=== PATIENT | male | born 1985 | race Caucasian/White ===

== ENCOUNTER 2024-04-30 02:58 | Emergency (ER) | payer OTHER, SELFPAY ==
[2024-04-30 03:00] VITALS: BP 154/106; PULSE 71; RESP 18; TEMP 36.4; O2SAT 97
--- NOTE | 2024-04-30 03:15 | ED.EAR ---
HPI - Ear Problem General Chief complaint: Ear Stated complaint: unspecified Time Seen by Provider: 04/30/24 03:14 Source: patient Mode of arrival: ambulatory Limitations: no limitations History of Present Illness HPI Narrative: this is a 38-year-old male presents with some sinus congestion with a postnasal drip right ear pressure with with some right frontal maxillary sinus tenderness with tender submandibular nodes mainly on the right with no fever chills no shortness of breath. MD Complaint: ear pain Location: right ear Duration: constant Severity: mild Relieving factors: NDAIDs Related Data Allergies Allergy/AdvReac Type Severity Reaction Status Date / Time No Known Allergies Allergy Unverified 10/17/14 19:18 Review of Systems Review of Systems: All systems reviewed & are unremarkable except as noted in HPI and below PMFSH Past Medical History Medical History Patient denies medical problems Exam Const: General: healthy appearing Nutritional Appearance: well nourished Orientation/consciousness: patient oriented x3 Limitations: no limitations HENMT: Head: normal to inspection Other: frontal and maxillary sinus tenderness with palpation Eyes: Conjunctivae: conjunctivae normal Neck: Neck: normal visual inspection and lymphadenopathy Chest: Chest palpation & inspection: normal inspection of the chest Resp: Effort & Inspection: normal respiratory effort Auscultation: clear to auscultation bilaterally GI: GI Palp: Yes Soft to palpation Course Course Emergency Course: submandibular node tenderness her right side than left with frontal sinus tenderness and air pressure administered a dose of Zithromax 500mg p.o.. Vital Signs Vital signs: Vital Signs Temperature 36.4 C L 04/30/24 03:00 Pulse Rate 71 04/30/24 03:00 Respiratory Rate 18 04/30/24 03:00 Blood Pressure 154/106 H 04/30/24 03:00 Pulse Oximetry 97 04/30/24 03:00 Oxygen Delivery Room Air 04/30/24 03:00 Temperature 36.4 C L 04/30/24 03:00 Pulse Rate 71 04/30/24 03:00 Respiratory Rate 18 04/30/24 03:00 Blood Pressure 154/106 H 04/30/24 03:00 Pulse Oximetry 97 04/30/24 03:00 Oxygen Delivery Room Air 04/30/24 03:00 Medical Decision Making Vital Signs Vital Signs: Vital Signs Temperature 36.4 C L 04/30/24 03:00 Pulse Rate 71 04/30/24 03:00 Respiratory Rate 18 04/30/24 03:00 Blood Pressure 154/106 H 04/30/24 03:00 Pulse Oximetry 97 04/30/24 03:00 Oxygen Delivery Room Air 04/30/24 03:00 Temperature 36.4 C L 04/30/24 03:00 Pulse Rate 71 04/30/24 03:00 Respiratory Rate 18 04/30/24 03:00 Blood Pressure 154/106 H 04/30/24 03:00 Pulse Oximetry 97 04/30/24 03:00 Oxygen Delivery Room Air 04/30/24 03:00 Critical Care Time Critical Care Time Critical Care Time: No Discharge Plan Discharge Clinical Impression: Sinusitis Qualifiers: Sinusitis location: maxillary Chronicity: acute Recurrence: non-recurrent Qualified Code(s): J01.00 - Acute maxillary sinusitis, unspecified Patient Disposition: Home, Self-Care Condition: Stable Instructions: Antibiotic Form, Sinusitis (ED) Additional Instructions: take medication as prescribed and keep follow-up appointment with your primary. Patient Language: Slovenian Prescriptions: New azithromycin [Zithromax Z-Urban] 250 mg tablet See Rx Instructions .ROUTE .COMPLEX Qty: 6 0RF Rx Instructions: For 250 mg dose pack: take 500 mg today (day 1), then 250 mg for 4 days (days 2-5) Follow-up/Referrals: [facility] [Primary Care Provider] - Time of Disposition: 03:19
[2024-04-30] MEDS: AZITHROMYCIN 250 MG TABLET 500 MG PO (03:20)
--- OUTSIDE RECORDS SUMMARY | 2024-05-07 02:45 | XMS_ITS | Patient Health Summary ---
Author Organization [facility] Address [address] [place] [address] Care Team Providers Care Customer Services Coordinator Name Role Phone Unavailable Primary Care Provider Unavailabl e Note from [facility],non-owned Affiliates and Associated Physician Practices is amultiple site organization consisting of ambulatory clinics and hospital sitesin [place], [place], [place] and [place]. This disclosure is being madepursuant to the Care Everywhere program and may not contain all information available regarding this patient. Last updated 18.[facility] Allergies No known active allergies Medications * Be aware that medications may not be up to date on this document. Alwaysverify current medications with the patient. * aspirin (ASPIRIN) 81 MG chew tablet Take 81 mg by mouth once daily Social History Tobacco Use Types Packs/Day Years Used Date Smoking Tobacco: Every Day Alcohol Use Standard Drinks/Week Comments Yes 0 (1 standard drink = 0.6 oz pur e alcohol) 2-3 daily Sex and Gender Information Value Date Recorded Sex Assigned at Not on file Gender Identity Not on file Sexual Orientation Not on file Last Filed Vital Signs Vital Sign Reading Time Taken Comments Blood Pressure 128/90 01/27/2015 6:00 PM CDT Pulse 71 01/27/2015 6:00 PM CDT Temperature 36.6 ??C (97.8 ??F) 01/27/2015 6:00 PM CD T Respiratory Rate 18 01/27/2015 6:00 PM CDT Oxygen Saturation 96% 01/27/2015 6:00 PM CDT Inhaled Oxygen Concentration - - Weight 49.4 kg (109 lb) 01/27/2015 12:07 PM CDT Height 180.3 cm (5' 11 ) 01/27/2015 12:07 PM CDT Body Mass Index 15.2 01/27/2015 12:07 PM CDT Procedures * DRUG ABUSE URINE SCREEN 10(Performed 01/27/2015) * URINALYSIS REFLEX MICROSCOPIC REFLEX CULTURE(Performed 01/27/2015) * TSH(Performed 01/27/2015) * ACETAMINOPHEN LEVEL(Performed 01/27/2015) * SALICYLATE LEVEL BLOOD(Performed 01/27/2015) * ALCOHOL ETHYL BLOOD(Performed 01/27/2015) * COMPREHENSIVE METABOLIC PANEL(Performed 01/27/2015) * CBC W AUTO DIFFERENTIAL(Performed 01/27/2015) Results * DRUG ABUSE URINE SCREEN 10 (01/27/2015 1:12 PM CDT) [facility] Amphetamines Screen Urine Negative Negative 01/27/2015 1:33 PM CDT [facility] Barbiturates Screen Urine Negative Negative 01/27/2015 1:33 PM CDT [facility] Benzodiazepines Screen Urine Negative Negative 01/27/2015 1:33 PM CDT [facility] Cannabinoids Screen Urine Negative Negative 01/27/2015 1:33 PM CDT [facility] Cocaine Screen Urine Negative Negative 01/27/2015 1:33 PM CDT [facility] Methadone Screen Urine Negative Negative 01/27/2015 1:33 PM CDT [facility] Opiate Screen Urine Negative Negative 01/27/2015 1:33 PM CDT [facility] Phencyclidine Screen Urine Negative Negative 01/27/2015 1:33 PM CDT [facility] Tricyclics Screen Urine Negative Negative 01/27/2015 1:33 PM CDT [facility] Methamphetamine Screen Urine Negative Negative 01/27/2015 1:33 PM CDT [facility] Urine URINE / Unknown 01/27/2015 1 :12 PM CDT 01/27/2015 1:17 PM CDT Narrative [facility] - 01/27/2015 1:33 PM CDT This is a presumptive/unconfirmed test for medical treatment purposes only. Clinical consideration and professional judgment should be applied when using presumptive results. If confirmatory testing, such as GC/MS, of any positive results of this test is required, please notify the laboratory within 7 days of collection. This test is intended only for monitoring or management of patients. It is not intended for use in job-related and/or legal-related purposes. The cutoff value for each analyte is: Barbiturates.....200 ng/mL ?? Benzodiazepines......150 ng/mL Cocaine..........150 ng/mL ?? Opiates..............100 ng/mL Phencyclidine.....25 ng/mL ?? Tricyclics...........300 ng/mL Cannabinoid.......50 ng/mL ?? Amphetamines.........500 ng/mL Methadone........200 ng/mL ?? Methamphetamines.....500 ng/mL Lisa Lo MD LAB - URINE CHEMISTR Y ORDERABLES Performing Organization Address City/State/[facility] Co de Phone Number [facility] [address] * URINALYSIS ROUTINE W/REFLEX TO CULTURE (01/27/2015 1:12 PM CDT) Color UA Yellow 01/27/2015 1:22 PM CDT [facility] Clarity UA Clear 01/27/2015 1:22 PM CDT [facility] Glucose UA Negative Negative 01/27/2015 1:22 PM CDT [facility] Bilirubin UA Negative Negative 01/27/2015 1:22 PM CDT [facility] Ketone UA Negative Negative 01/27/2015 1:22 PM CDT [facility] Specific [place] UA <=1.005 1.005 - 1.030 01/27/2015 1:22 PM CDT [facility] pH UA 6.5 5.0 - 8.0 pH 01/27/2015 1:22 PM CDT [facility] Protein UA Negative Negative 01/27/2015 1:22 PM CDT [facility] Urobilinogen UA 0.2 0.2 - 1.0 EU/dL 01/27/2015 1:22 PM CDT [facility] Nitrite UA Negative Negative 01/27/2015 1:22 PM CDT [facility] Blood UA Negative Negative 01/27/2015 1:22 PM CDT [facility] Leukocyte UA Negative Negative 01/27/2015 1:22 PM T [facility] Urine Microscopy Urine microscopy not indicated 01/27/2015 1:22 PM T [facility] Reflex Status Culture not indicated 01/27/2015 1:22 PM CDT [facility] Urine URINE SPECIMEN OBTAINED BY CLEAN CATCH PROCEDURE / Unknown 01/27/2015 1:12 PM CDT 01/27/2015 1:17 PM CDT Lisa Lo MD LAB - URINALYSIS ORD ERABLES Performing Organization Address City/State/[facility] Co de Phone Number [facility] [address] * (ABNORMAL) CBC W AUTO DIFFERENTIAL (01/27/2015 12:08 PM CDT) [facility] WBC 10.0 4.0 - 10.0 x10^9/L 01/27/2015 12:15 PM CDT [facility] RBC 5.55 4.40 - 6.10 x10^12/L 01/27/2015 12:15 PM T [facility] Hemoglobin 18.1(H) 13.7 - 17.5 gm/dL 01/27/2015 12:15 PM T [facility] Hematocrit 50.7 40.1 - 51.0 % 01/27/2015 12:15 PM T [facility] MCV 91.4 78.0 - 100.0 fl 01/27/2015 12:15 PM T [facility] MCH 32.6 25.6 - 34.0 pg 01/27/2015 12:15 PM CDT [facility] MCHC 35.7 32.3 - 36.5 gm/dL 01/27/2015 12:15 PM T [facility] RDW 12.8 11.6 - 14.4 % 01/27/2015 12:15 PM T [facility] MPV 10.1 9.4 - 12.4 fl 01/27/2015 12:15 PM T [facility] Platelet Count 224 163 - 369 x10^9/L 01/27/2015 12:15 PM T [facility] Neutrophils % 73.0 40.0 - 75.0 % 01/27/2015 12:15 PM T [facility] Lymphocytes % 19.2(L) 19.3 - 53.1 % 01/27/2015 12:15 PM T [facility] Monocytes % 6.4 4.7 - 12.5 % 01/27/2015 12:15 PM T [facility] Eosinophils % 0.9 0.7 - 7.0 % 01/27/2015 12:15 PM CDT [facility] Basophils % 0.2 0.1 - 1.2 % 01/27/2015 12:15 PM CDT [facility] Immature Granulocytes 0.3 0 - 0.5 % 01/27/2015 12:15 PM CDT [facility] Neutrophil Absolute 7.26(H) 1.56 - 6.13 x10^9/L 01/27/2015 12:15 PM T [facility] Lymphocytes Absolute 1.91 1.18 - 3.74 x10^9/L 01/27/2015 12:15 PM CDT [facility] Monocytes Absolute 0.64 0.24 - 0.86 x10^9/L 01/27/2015 12:15 PM T [facility] Eosinophils Absolute 0.09 0.04 - 0.54 x10^9/L 01/27/2015 12:15 PM T [facility] Basophils Absolute 0.02 0.01 - 0.08 x10^9/L 01/27/2015 12:15 PM T [facility] Immature Granulocytes Absolute 0.03 0 - 0.03 x10^9/L 01/27/2015 12:15 PM T [facility] nRBC Auto 0 <=0 /100 WBC 01/27/2015 12:15 PM T [facility] nRBC Absolute 0.00 <=0 x10^9/L 01/27/2015 12:15 PM T [facility] Blood BLOOD SPECIMEN / Unknown Lab Venipuncture / Unknown 01/27/2015 12:08 PM CDT 01/27/2015 12:11 PM CDT Lisa Lo MD LAB - HEMATOLOGY ORD ERABLES Performing Organization Address City/State/[facility] Co de Phone Number [facility] [address] * COMPREHENSIVE METABOLIC PANEL (01/27/2015 12:08 PM CDT) [facility] Glucose 94 70 - 125 mg/dL 01/27/2015 12:39 PM CDT [facility] Sodium 137 136 - 145 mmol/L 01/27/2015 12:39 PM CDT [facility] Potassium 4.5 3.4 - 4.5 mmol/L 01/27/2015 12:39 PM T [facility] Chloride 105 98 - 107 mmol/L 01/27/2015 12:39 PM [facility] CO2 23 22 - 29 mmol/L 01/27/2015 12:39 PM [facility] Calcium 9.7 8.4 - 10.2 mg/dL 01/27/2015 12:39 PM [facility] Anion Gap 14 10 - 20 mmol/L 01/27/2015 12:39 PM [facility] BUN 11.6 8.4 - 25.7 mg/dL 01/27/2015 12:39 PM [facility] Creatinine 1.08 0.72 - 1.25 mg/dL 01/27/2015 12:39 PM [facility] eGFR by MDRD >60 >60 mL/min/1.7 3m2 01/27/2015 12:39 PM [facility] eGFR by MDRD >60 >60 mL/min/1.7 3m2 01/27/2015 12:39 PM [facility] Alkaline Phosphatase 99 40 - 150 U/L 01/27/2015 12:39 PM [facility] ALT 18 5 - 55 U/L 01/27/2015 12:39 PM [facility] AST 23 5 - 34 U/L 01/27/2015 12:39 PM [facility] Protein Total 7.5 6.4 - 8.3 gm/dL 01/27/2015 12:39 PM [facility] Albumin 4.0 3.5 - 5.0 gm/dL 01/27/2015 12:39 PM [facility] Globulin Total 3.5 2.6 - 4.0 gm/dL 01/27/2015 12:39 PM [facility] Albumin/Globulin Ratio 1.1 0.9 - 1.6 01/27/2015 12:39 PM [facility] Bilirubin Total 0.5 0.2 - 1.2 mg/dL 01/27/2015 12:39 PM [facility] Blood BLOOD SPECIMEN / Unknown Lab Venipuncture / Unknown 01/27/2015 12:08 PM CDT 01/27/2015 12:11 PM T Lisa Lo MD LAB - CHEMISTRY LATOYA Ramírez Organization Address City/State/[facility] Co de Phone Number [facility] [address] * ALCOHOL ETHYL BLOOD (01/27/2015 12:08 PM CDT) Ethanol <10.0 <10 mg/dL 01/27/2015 12:39 PM CDT [facility] Blood BLOOD SPECIMEN / Unknown Lab Venipuncture / Unknown 01/27/2015 12:08 PM CDT 01/27/2015 12:11 PM CDT Narrative [facility] - 01/27/2015 12:39 PM CDT For Medical Use Only Lisa Lo MD LAB - CHEMISTRY LATOYA PONCE Performing Organization Address City/[facility]/ZIP Co de Phone Number [facility] [address] * TSH (01/27/2015 12:08 PM CDT) TSH 0.661 0.35 - 4.94 uIU/mL 01/27/2015 12:56 PM CDT [facility] Blood BLOOD SPECIMEN / Unknown Lab Venipuncture / Unknown 01/27/2015 12:08 PM CDT 01/27/2015 12:11 PM CDT Lisa Lo MD LAB - CHEMISTRY LATOYA PONCE Performing Organization Address City/[facility]/ZIP Co de Phone Number [facility] [address] [place] [address] * (ABNORMAL) SALICYLATE LEVEL BLOOD (01/27/2015 12:08 PM CDT) Salicylate <5.0(L) 15.0 - 30.0 mg/dL 01/27/2015 12:41 PM CDT [facility] Blood BLOOD SPECIMEN / Unknown Lab Venipuncture / Unknown 01/27/2015 12:08 PM CDT 01/27/2015 12:11 PM CDT Lisa Lo MD LAB - CHEMISTRY LATOYA PONCE Performing Organization Address City/[facility]/ZIP Co de Phone Number [facility] [address] [place] [address] * (ABNORMAL) ACETAMINOPHEN LEVEL (01/27/2015 12:08 PM CDT) Acetaminophen <0.6(L) 10.0 - 30.0 ug/mL 01/27/2015 12:41 PM CDT [facility] Blood BLOOD SPECIMEN / Unknown Lab Venipuncture / Unknown 01/27/2015 12:08 PM CDT 01/27/2015 12:11 PM CDT Lisa Lo MD LAB - CHEMISTRY LATOYA PONCE Performing Organization Address City/State/[facility] Co de Phone Number [facility] [address] [place], [place] [id number] [place] [address]
--- OUTSIDE RECORDS SUMMARY | 2024-05-07 02:45 | XMS_ITS | Referral Summary ---
Author Organization [facility] Address [address] [place] [address] Care Team Providers Care Epic Prelude Analyst Name Role Phone Unavailable Primary Care Provider Unavailabl e Source Comments [facility],non-owned Affiliates and Associated Physician Practices is amultiple site organization consisting of ambulatory clinics and hospital sitesin [place], [place], [place] and [place]. This disclosure is being madepursuant to the Care Everywhere program and may not contain all information available regarding this patient. Last updated 18.[facility] Allergies No known active allergies Medications * Be aware that medications may not be up to date on this document. Alwaysverify current medications with the patient. Medication Sig Dispensed Refills Start Date End Date Status aspirin (ASPIRIN) 81 MG chew tablet Take 81 mg by mouth once daily Active Social History Tobacco Use Types Packs/Day Years [...] Mass Index 15.2 01/27/2015 12:07 PM CDT Plan of Treatment Not on file
--- OUTSIDE RECORDS SUMMARY | 2024-05-07 02:45 | XMS_ITS | Encounter Summary ---
Author Organization [facility] Address [address] 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 Name Role Phone Unavailable Primary Care Provider Unavailabl e Reason for Visit * Reason Comments SUICIDAL brought in by Awilda Marques Encounter Details Date Type Department Care Team (Late st Contact Info) Description 01/27/2015 11:54 AM CDT - 01/27/2015 6:40 PM CDT Emergency ER at [address] [id number] Lisa Lo MD [address] [place] [address] [id number] Suicidal ideation Discharge Disposition: Psychiatric Hospital or Unit Social History Tobacco Use Types Packs/Day Years Used Date Smoking Tobacco: Every Day Alcohol Use Standard Drinks/Week Comments Yes 0 (1 standard drink = 0.6 oz pur e alcohol) 2-3 daily Sex and Gender Information Value Date Recorded Sex Assigned at Not on file Gender Identity Not on file Sexual Orientation Not on file documented as of this encounter Last Filed Vital Signs Vital Sign Reading [...] Mass Index 15.2 01/27/2015 12:07 PM CDT documented in this encounter Discharge Instructions * Discharge Instructions* Lisa Lo MD - 01/27/2015 5:12 PM CDT transfer documented in this encounter Medications at Time of Discharge Medication Sig Dispensed Refills Start Date End Date aspirin (ASPIRIN) 81 MG chew tablet Take 81 mg by mouth once daily documented as of this encounter Progress Notes * Chris Betancourt - 01/27/2015 5:26 PM CDT I spoke with Chris at [facility] who states Dr. Lira accepted pt , states doc-to-doc not requested * Chris Betancourt - 01/27/2015 4:50 PM CDT I spoke with Chris Perez, who states pt has been approved for transfer and received fax from [facility] that pt is seeking voluntary admission. I spoke with Emeli, [facility] and gave admission information * Chris Betancourt - 01/27/2015 3:14 PM CDT Jose received call from Bianka with [facility] who requested that documentation be faxed to her indicating pt is willing to seek voluntary admission , I spoke with Oma at [facility] to inform of this * Chris Betancourt - 01/27/2015 2:50 PM CDT I spoke with Jenni at [facility] at [phone] who states they don't have psych inpt services , however asked if pt is seeking help on a voluntary basis as [facility] bed availability,I spoke with Oma at [facility] who states pt is voluntary status, Jenni requested that I contact [facility] at [phone] and ask for charge nurse in ED , I spoke with Bianka Charge Nurse, who requested clinical information be sent , information was faxed to [phone] * Chris Betancuort - 01/27/2015 1:10 PM CDT Emeli [facility] called , states Dr. Lo is recommending psych admission of pt . * Chris Betancourt - 01/27/2015 12:45 PM CDT Received fax from [facility] at [phone] consult to [facility] documented in this encounter ED Notes * Linn Johnson RN - 01/27/2015 6:25 PM CDT [facility] here. Report given. Care turned over. Patient alert. Color good. Skin warmand dry. No respiratory distress. Cooperative. * Linn Johnson RN - 01/27/2015 5:[address] Lo in room talking with pt. * Linn Johnson RN - 01/27/2015 5:30 PM CDT Ate 50 % of diet. Voiced doesn't care much for hospital food. * Linn Johnson RN - 01/27/2015 5:26 PM CDT Spoke with Chris with [facility]. Accepting doctor is Dr Lira. Dr to Dr contact not necessary. * Linn Johnson RN - 01/27/2015 5:02 PM CDT [facility] [place] [place] [facility] [phone] for transportation to [facility]. Will make arrangements for ambulance to filler picker patient. * Linn Johnson RN - 01/27/2015 5:00 PM CDT Supper tray served. Less anxious. Sitter at bedside. * Linn Johnson RN - 01/27/2015 4:58 PM CDT Report called to Chris at [facility]. Okay to send patient. * Linn Johnson RN - 01/27/2015 4:50 PM CDT Received call from Chris with . Information received to call Chris at [facility] ER to given report at [phone]. * Linn Johnson RN - 01/27/2015 4:33 PM CDT Chris with [facility] notified that patient is willing to go to [facility] and has signed note that he is willing to go. Also informed that information has been faxed to Bianka with [facility] at [phone]. * Linn Johnson RN - 01/27/2015 4:30 PM CDT Signed note for voluntary admission to [facility] faxed to [phone]. * Linn Johnson RN - 01/27/2015 4:24 PM CDT Patient agrees to go voluntary to [facility] in [place], [place]. Voluntary written note signed by patient and witnessed by this nurse received and placed on chart. * Linn Johnson RN - 01/27/2015 3:55 PM CDT Spoke with patient lengthy regarding admission to [facility]. Unsure if wants to go to [facility]. Requesting to go home. Informed unable to go home. states I did have thoughts of harming myself but I don't know . Pacing back and forth in room. Wring hands together. 1:[address] Lo aware. * Cari Hunter RN - 01/27/2015 2:35 PM CDT Chris from [facility] called and said [facility] had a bed and he was going to fax the information to them * Cari Hunter RN - 01/27/2015 2:26 PM CDT Chris from [facility] called and said [facility],will call [facility] for placement * Linn Johnson RN - 01/27/2015 2:15 PM CDT Sitter at bedside. Cooperative. * Linn Johnson RN - 01/27/2015 1:00 PM CDT [facility] notified at [phone]. Spoke with Chris. Notes read to Chris. * Linn Johnson RN - 01/27/2015 1:00 PM CDT Sitter at bed side. Quiet. Cooperative. * Linn Johnson RN - 01/27/2015 12:57 PM CDT Unable to give urine specimen at this time. Drinking ice water. Nurse Oma received a notebook of Miguel Ángel's brought in by girlfriend. Copies of entries made. Notebook returned to pt. * Cari Hunter RN - 01/27/2015 12:40 PM CDT Explained to pt the process,that he would have to get undressed. He would not be allowed to leave. He was informed that he could sign himself in or we would make him an involuntary admission. Girl friend and officer filled out papers. * Linn Johnson RN - 01/27/2015 12:39 PM CDT States was arguing with x-girlfriend. I grabbed a gun put A round in it. Then i got into a right frame of mind. I took it out put the gun up. I tried to talk to here. She had already called 911 and she wouldn't talk to me . Struggling with thoughts to harm self sine was in [place]. Alert and orientedx 3. Color good. Skin warm and dry. No respiratory distress. Wringing hands together constantly. 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 Voiced willing to sign self in voluntary if needs to be admitted. * Cari Hunter RN - 01/27/2015 12:19 PM CDT Pt states that he got into a disagreement with ex-girlfriend/friend and she started packing her stuff up and was going to leave,so pt stated he went and got the gun and put a round in it and went into the bedroom. The girlfriend called 911. When the deputy sheriff/investigator got there pt was sitting on the porch. The gun was in the closet,unloaded in the case. Pt states that he has had trouble with anxiety and depression for the past 5 years. 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 In the past 2 years pt states that he has done the same thing 4 different times. Pt did time in [place] and suffers from PTSD. * Lisa Lo MD - 01/27/2015 12:03 PM CDT Provider contact with the patient: 01/27/2015 12:03 Miguel Ángel Nunez [id number] [facility] EMERGENCY DEPARTMENT History Chief Complaint Patient presents with ??? SUICIDAL brought in by Awilda Marques Psych Disorder The history is provided by the patient (The patient presents with depression and suicidal ideation). This is a new problem. The patient was referred by police and other (His girlfriend called the police). Signs of injury:No. Physical comfort (WDL):No. The current episode started 1 to 2 hours ago. The primary symptoms include depression, suicidal thoughts, suicidal attempt (gesture), agitated, anxiety, stress and nervousness.The primary symptoms do not include homicidal, panic attack, hallucinating, bizzare behavior or agressive behavior.Precipitating factors include significant other (The patient thinks he has PTSD. 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 Got in an argument with girlfriend).Associated symptoms include tremulousness, depressed, agitated and frustrated.Pertinent negatives include no loss of appetite, no dysphoria, no delusions, nodrug/alcohol abuse, no paranoid, no angry, no hostile or no self injury.Associated symptoms comments: The patient went into the bedroom and loaded a gun. States he has done this at least 3 prior times in the past year and a half. Never sought treatment.. E/M Caveat: The patient has never been treated or hospitilized. Past Medical History Diagnosis Date ??? Heart disease ??? Generalized anxiety disorder ??? Depressive disorder, not elsewhere classified No past surgical history on file. No family history on file. History Social History ??? Marital Status: Single Spouse Name: N/A Number of Children: N/A ??? Years of Education: N/A Occupational History ??? Not on file. Social History Main Topics ??? Smoking status: Current Every Day Smoker ??? Smokeless tobacco: Not on file ??? Alcohol Use: Yes Comment: 2-3 daily ??? Drug Use: No ??? Sexual Activity: Not on file Other Topics Concern ??? Not on file Social History Narrative ??? No narrative on file Review of Systems Review of Systems Constitutional: Negative. Negative for fever, chills, weight loss, malaise/fatigue and diaphoresis. HENT: Negative. Eyes: Negative. Respiratory: Negative. Cardiovascular: Negative. Gastrointestinal: Negative. Genitourinary: Negative. Musculoskeletal: Negative. Skin: Negative. Neurological: Negative. Negative for weakness. Endo/Heme/Allergies: Negative. Psychiatric/Behavioral: Positive for depression and suicidal ideas. Negative for hallucinations, memory loss and substance abuse. The patient is nervous/anxious. The patient does not have insomnia. Does drink and smoke. All other systems reviewed and are negative. Physical Exam There were no vitals taken for this visit. Physical Exam Constitutional: He is oriented to person, place, and time. He appears well- developed and well-nourished. No distress. The patient is pleasant and cooperative. Appears anxious and depressed. Very fidgety. HENT: Head: Normocephalic and atraumatic. Eyes: EOM are normal. Pupils are equal, round, and reactive to light. Neck: Normal range of motion. Neck supple. Cardiovascular: Normal rate and regular rhythm. Pulmonary/Chest: Effort normal and breath sounds normal. Abdominal: Soft. Bowel sounds are normal. Musculoskeletal: He exhibits no edema or tenderness. Neurological: He is alert and oriented to person, place, and time. Skin: Skin is warm and dry. He is not diaphoretic. Psychiatric: Depressed and anxious.. Nursing note and vitals reviewed. Medications Current Outpatient Prescriptions Medication Sig Dispense Refill ??? aspirin (ASPIRIN) 81 MG chew tablet Take 81 mg by mouth once daily Procedures Procedures ECG Interpretation ECG Interpretation Lab/SPO2 Interpretation Hospital Encounter on 01/27/15 CBC W AUTO DIFFERENTIAL Result Value Ref Range WBC 10.0 4.0-10.0 x10^9/L RBC 5.55 4.40-6.10 x10^12/L Hgb 18.1 (H) 13.7-17.5 gm/dL HCT 50.7 40.1-51.0 % MCV 91.4 78.0-100.0 fl MCH 32.6 25.6-34.0 pg MCHC 35.7 32.3-36.5 gm/dL RDW 12.8 11.6-14.4 % MPV 10.1 9.4-12.[address] 224 163-369 x10^9/L Neutro 73.0 40.0-75.0 % Lymph 19.2 (L) 19.3-53.1 % [place] 6.4 4.7-12.5 % Eos 0.9 0.7-7.0 % Baso 0.2 0.1-1.2 % Immature Grans 0.3 0-0.5 % Neutro Abs 7.26 (H) 1.56-6.13 x10^9/L Lymph Abs 1.91 1.18-3.74 x10^9/L Ren[place] Abs 0.64 0.24-0.86 x10^9/L Eosin Abs 0.09 0.04-0.54 x10^9/L Baso Abs 0.02 0.01-0.08 x10^9/L Immature Grans (Abs) 0.03 0-0.03 x10^9/L NRBC Auto 0 <=0 /100 WBC NRBC ABS Blood Auto 0.00 <=0 x10^9/L COMPREHENSIVE METABOLIC PANEL Result Value Ref Range Glucose 94 70-125 mg/dL Sodium 137 136-145 mmol/L Potassium 4.5 3.4-4.5 mmol/L Chloride 105 98-107 mmol/L CO2 23 22-29 mmol/L Calcium 9.7 8.4-10.2 mg/dL Anion Gap 14 10-20 mmol/L BUN 11.6 8.4-25.7 mg/dL Creatinine 1.08 0.72-1.25 mg/dL eGFR MDRD >60 >60 mL/min/1.73m2 eGFR MDRD AFR AMR >60 >60 mL/min/1.73m2 Alk Phos 99 40-150 U/L ALT/SGPT 18 5-55 U/L AST/SGOT 23 5-34 U/L Protein Total 7.5 6.4-8.3 gm/dL Albumin 4.0 3.5-5.0 gm/dL Globulin Total 3.5 2.6-4.0 gm/dL Alb/Glob Ratio 1.1 0.9-1.6 Bili Total 0.5 0.2-1.2 mg/dL URINALYSIS ROUTINE W/REFLEX TO CULTURE Result Value Ref Range Color UA Yellow Clarity UA Clear Glucose UA Negative Negative Bili UA Negative Negative Ketone UA Negative Negative Specific [place]view UA <=1.005 1.005-1.030 pH UA 6.5 5.0-8.0 pH Protein UA Negative Negative Urobilinogen UA 0.2 0.2-1.0 EU/dL Nitrite UA Negative Negative Blood UA Negative Negative Leukocyte UA Negative Negative Urine Microscopy Urine microscopy not indicated Reflex Status Culture not indicated ALCOHOL ETHYL BLOOD Result Value Ref Range Ethanol <10.0 <10 mg/dL DRUG ABUSE URINE SCREEN 10 Result Value Ref Range Amphetamines Screen Urine Negative Negative Barbiturates Screen Urine Negative Negative Benzodiazepines Screen Urine Negative Negative Cannabinoids Screen Urine Negative Negative Cocaine Screen Urine Negative Negative Methadone Screen Urine Negative Negative Opiates Screen Urine Negative Negative Phencyclidine Screen Urine Negative Negative Tricyclics Screen Urine Negative Negative Methamphetamine Screen Urine Negative Negative SALICYLATE LEVEL BLOOD Result Value Ref Range Salicylate Serum <5.0 (L) 15.0-30.0 mg/dL ACETAMINOPHEN LEVEL Result Value Ref Range Acetaminophen <0.6 (L) 10.0-30.0 ug/mL TSH Result Value Ref Range TSH 0.661 0.35-4.94 uIU/mL No orders to display Progress Notes The patient remains cooperative. In no distress at this time... Waiting for placement. The PD and girlfriend have written involuntary petitions. The patient declines the need for any medication at this time. Upset because he is worried about losing his job.. At 1444 possible placement and [facility] in [place]. The patient has remained cooperative. In no distress at this time. ED Course Medical Decision Making I have reviewed the: Nursing Notes and Vitals. I have interpreted the following results: Labs and Oxygen Saturation. Orders Placed This Encounter ??? CBC W AUTO DIFFERENTIAL ??? COMPREHENSIVE METABOLIC PANEL ??? URINALYSIS ROUTINE W/REFLEX TO CULTURE ??? ALCOHOL ETHYL BLOOD ??? DRUG ABUSE URINE SCREEN 10 ??? SALICYLATE LEVEL BLOOD ??? ACETAMINOPHEN LEVEL ??? TSH ??? IP CONSULT TO [facility] Clinical Impression Final diagnoses: Suicidal ideation documented in this encounter Plan of Treatment Not on file documented as of this encounter Procedures Procedure Name Priority Date/Time Associated Diagnosis Comments DRUG ABUSE URINE SCREEN 10 STAT 01/27/2015 1:12 PM CDT URINALYSIS REFLEX MICROSCOPIC REFLEX CULTURE STAT 01/27/2015 1:12 PM CDT CBC W AUTO DIFFERENTIAL STAT 01/27/2015 12:08 PM CDT COMPREHENSIVE METABOLIC PANEL STAT 01/27/2015 12:08 PM CDT ALCOHOL ETHYL BLOOD STAT 01/27/2015 1 2:08 PM CDT TSH STAT 01/27/2015 12:08 PM CDT SALICYLATE LEVEL BLOOD STAT 5 12:08 PM CDT ACETAMINOPHEN LEVEL STAT 01/27/2015 1 2:08 PM CDT documented in this encounter Results * DRUG ABUSE URINE SCREEN 10 (01/27/2015 1:12 PM CDT) [facility] Amphetamines Screen Urine Negative Negative 01/27/2015 1:33 PM CDT [facility] Barbiturates Screen Urine Negative Negative 01/27/2015 1:33 PM CDT [facility] Benzodiazepines Screen Urine Negative Negative 01/27/2015 1:33 PM CDT [facility] Cannabinoids Screen Urine Negative Negative 01/27/2015 1:33 PM CDT [facility] Cocaine Screen Urine Negative Negative 01/27/2015 1:33 PM CDT [facility] Methadone Screen Urine Negative Negative 01/27/2015 1:33 PM CDT [facility] Opiate Screen Urine Negative Negative 01/27/2015 1:33 PM CDT [facility] Phencyclidine Screen Urine Negative Negative 01/27/2015 1:33 PM CDT [facility] Tricyclics Screen Urine Negative Negative 01/27/2015 1:33 PM CDT [facility] Methamphetamine Screen Urine Negative Negative 01/27/2015 1:33 PM CDT [facility] Urine URINE / Unknown 01/27/2015 1 :12 PM CDT 01/27/2015 1:17 PM CDT Narrative [facility] - 01/27/2015 1:33 PM CDT This [...] URINE CHEMISTR Y ORDERABLES Performing Organization Address [facility]/ZIP Co de Phone Number [facility] [address] * URINALYSIS ROUTINE W/REFLEX TO CULTURE (01/27/2015 1:12 PM CDT) Color UA Yellow 01/27/2015 1:22 PM CDT [facility] Clarity UA Clear 01/27/2015 1:22 PM CDT [facility] Glucose UA Negative Negative 01/27/2015 1:22 PM CDT [facility] Bilirubin UA Negative Negative 01/27/2015 1:22 PM CDT [facility] Ketone UA Negative Negative 01/27/2015 1:22 PM CDT [facility] Specific [place] UA <=1.005 1.005 - 1.030 01/27/2015 1:22 PM CDT [facility] pH UA 6.5 5.0 - 8.0 pH 01/27/2015 1:22 PM CDT [facility] Protein UA Negative Negative 01/27/2015 1:22 PM CDT [facility] Urobilinogen UA 0.2 0.2 - 1.0 EU/dL 01/27/2015 1:22 PM CDT [facility] Nitrite UA Negative Negative 01/27/2015 1:22 PM CDT [facility] Blood UA Negative Negative 01/27/2015 1:22 PM CDT [facility] Leukocyte UA Negative Negative 01/27/2015 1:22 PM CDT [facility] Urine Microscopy Urine microscopy not indicated 01/27/2015 1:22 PM CDT [facility] Reflex Status Culture not indicated 01/27/2015 1:22 PM CDT [facility] Urine URINE SPECIMEN OBTAINED BY CLEAN CATCH PROCEDURE / Unknown 01/27/2015 1:12 PM CDT 01/27/2015 1:17 PM CDT Lisa Lo MD LAB - URINALYSIS ORD ERABLES Performing Organization Address [facility] Co de Phone Number [facility] [address] * TSH (01/27/2015 12:08 PM CDT) TSH 0.661 0.35 - 4.94 uIU/mL 01/27/2015 12:56 PM CDT [facility] Blood BLOOD SPECIMEN / Unknown Lab Venipuncture / Unknown 01/27/2015 12:08 PM CDT 01/27/2015 12:11 PM CDT Lisa Lo MD LAB - CHEMISTRY LATOYA PONCE Performing Organization Address [facility] Co de Phone Number [facility] [address] * (ABNORMAL) ACETAMINOPHEN LEVEL (01/27/2015 12:08 PM CDT) Acetaminophen <0.6(L) 10.0 - 30.0 ug/mL 01/27/2015 12:41 PM CDT [facility] Blood BLOOD SPECIMEN / Unknown Lab Venipuncture / Unknown 01/27/2015 12:08 PM CDT 01/27/2015 12:11 PM CDT Lisa Lo MD LAB - CHEMISTRY LATOYA PONCE Performing Organization Address [facility] Co de Phone Number [facility] [address] [place] [address] * (ABNORMAL) SALICYLATE LEVEL BLOOD (01/27/2015 12:08 PM CDT) Salicylate <5.0(L) 15.0 - 30.0 mg/dL 01/27/2015 12:41 PM CDT [facility] Blood BLOOD SPECIMEN / Unknown Lab Venipuncture / Unknown 01/27/2015 12:08 PM CDT 01/27/2015 12:11 PM CDT Lisa Lo MD LAB - CHEMISTRY LATOYA PONCE Performing Organization Address [facility] Co de Phone Number [facility] [address] [place] [address] * ALCOHOL ETHYL BLOOD (01/27/2015 12:08 PM CDT) Ethanol <10.0 <10 mg/dL 01/27/2015 12:39 PM CDT [facility] Blood BLOOD SPECIMEN / Unknown Lab Venipuncture / Unknown 01/27/2015 12:08 PM CDT 01/27/2015 12:11 PM CDT Narrative [facility] - 01/27/2015 12:39 PM CDT For Medical Use Only Lisa Lo MD LAB - CHEMISTRY LATOYA PONCE [facility] Organization Address City/State/ZIP Co de Phone Number [facility] [address] [place], [place] [id number] [place] [address] * COMPREHENSIVE METABOLIC PANEL (01/27/2015 12:08 PM CDT) Glucose 94 70 - 125 mg/dL 01/27/2015 12:39 PM CDT [facility] Sodium 137 136 - 145 mmol/L 01/27/2015 12:39 PM CDT [facility] Potassium 4.5 3.4 - 4.5 mmol/L 01/27/2015 12:39 PM CDT [facility] Chloride 105 98 - 107 mmol/L 01/27/2015 12:39 PM CDT [facility] CO2 23 22 - 29 mmol/L 01/27/2015 12:39 PM T [facility] Calcium 9.7 8.4 - 10.2 mg/dL 01/27/2015 12:39 PM T [facility] Anion Gap 14 10 - 20 mmol/L 01/27/2015 12:39 PM CDT [facility] BUN 11.6 8.4 - 25.7 mg/dL 01/27/2015 12:39 PM CDT [facility] Creatinine 1.08 0.72 - 1.25 mg/dL 01/27/2015 12:39 PM CDT [facility] eGFR by MDRD >60 >60 mL/min/1.7 3m2 01/27/2015 12:39 PM T [facility] eGFR by MDRD >60 >60 mL/min/1.7 3m2 01/27/2015 12:39 PM CDT [facility] Alkaline Phosphatase 99 40 - 150 U/L 01/27/2015 12:39 PM CDT [facility] ALT 18 5 - 55 U/L 01/27/2015 12:39 PM CDT [facility] AST 23 5 - 34 U/L 01/27/2015 12:39 PM CDT [facility] Protein Total 7.5 6.4 - 8.3 gm/dL 01/27/2015 12:39 PM T [facility] Albumin 4.0 3.5 - 5.0 gm/dL 01/27/2015 12:39 PM T [facility] Globulin Total 3.5 2.6 - 4.0 gm/dL 01/27/2015 12:39 PM CDT [facility] Albumin/Globulin Ratio 1.1 0.9 - 1.6 01/27/2015 12:39 PM CDT [facility] Bilirubin Total 0.5 0.2 - 1.2 mg/dL 01/27/2015 12:39 PM CDT [facility] Blood BLOOD SPECIMEN / Unknown Lab Venipuncture / Unknown 01/27/2015 12:08 PM CDT 01/27/2015 12:11 PM CDT Lisa Lo MD LAB - CHEMISTRY LATOYA PONCE [facility] Organization Address City/State/[facility] Co de Phone Number [facility] [address] * (ABNORMAL) CBC W AUTO DIFFERENTIAL (01/27/2015 12:08 PM CDT) WBC 10.0 4.0 - 10.0 x10^9/L 01/27/2015 12:15 PM CDT [facility] RBC 5.55 4.40 - 6.10 x10^12/L 01/27/2015 12:15 PM CDT [facility] Hemoglobin 18.1(H) 13.7 - 17.5 gm/dL 01/27/2015 12:15 PM CDT [facility] Hematocrit 50.7 40.1 - 51.0 % 01/27/2015 12:15 PM CDT [facility] MCV 91.4 78.0 - 100.0 fl 01/27/2015 12:15 PM CDT [facility] MCH 32.6 25.6 - 34.0 pg 01/27/2015 12:15 PM CDT [facility] MCHC 35.7 32.3 - 36.5 gm/dL 01/27/2015 12:15 PM CDT [facility] RDW 12.8 11.6 - 14.4 % 01/27/2015 12:15 PM CDT [facility] MPV 10.1 9.4 - 12.4 fl 01/27/2015 12:15 PM CDT [facility] Platelet Count 224 163 - 369 x10^9/L 01/27/2015 12:15 PM CDT [facility] Neutrophils % 73.0 40.0 - 75.0 % 01/27/2015 12:15 PM CDT [facility] Lymphocytes % 19.2(L) 19.3 - 53.1 % 01/27/2015 12:15 PM CDT [facility] Monocytes % 6.4 4.7 - 12.5 % 01/27/2015 12:15 PM CDT [facility] Eosinophils % 0.9 0.7 - 7.0 % 01/27/2015 12:15 PM T [facility] Basophils % 0.2 0.1 - 1.2 % 01/27/2015 12:15 PM CDT [facility] Immature Granulocytes 0.3 0 - 0.5 % 01/27/2015 12:15 PM CDT [facility] Neutrophil Absolute 7.26(H) 1.56 - 6.13 x10^9/L 01/27/2015 12:15 PM CDT [facility] Lymphocytes Absolute 1.91 1.18 - 3.74 x10^9/L 01/27/2015 12:15 PM T [facility] Monocytes Absolute 0.64 0.24 - 0.86 x10^9/L 01/27/2015 12:15 PM CDT [facility] Eosinophils Absolute 0.09 0.04 - 0.54 x10^9/L 01/27/2015 12:15 PM CDT [facility] Basophils Absolute 0.02 0.01 - 0.08 x10^9/L 01/27/2015 12:15 PM CDT [facility] Immature Granulocytes Absolute 0.03 0 - 0.03 x10^9/L 01/27/2015 12:15 PM T [facility] nRBC Auto 0 <=0 /100 WBC 01/27/2015 12:15 PM T [facility] nRBC Absolute 0.00 <=0 x10^9/L 01/27/2015 12:15 PM T [facility] Blood BLOOD SPECIMEN / Unknown Lab Venipuncture / Unknown 01/27/2015 12:08 PM CDT 01/27/2015 12:11 PM CDT Lisa Lo MD LAB - HEMATOLOGY ORD ERABLES [facility] [address] documented in this encounter Visit Diagnoses Diagnosis Suicidal ideation documented in this encounter
--- OUTSIDE RECORDS SUMMARY | 2024-05-07 02:45 | XMS_ITS | Clinical Summary ---
Author Organization [facility] Address [address] [place] [address] Care Team Providers Care Slps Name Role Phone Unavailable Primary Care Provider Unavailabl e Source Comments [facility],non-owned Affiliates and Associated Physician Practices is amultiple site organization consisting of ambulatory clinics and hospital sitesin [place], [place], [place] and [place]. This disclosure is being madepursuant to the Care Everywhere program and may not contain all information available regarding this patient. Last updated 18.[employer]ze[employer] Allergies No known active allergies Medications * [...] 01/27/2015 12:07 PM CDT Plan of Treatment Health Maintenance Due Date Last Done Comments LIPID TESTING 1983 PNEUMOCOCCAL VACCINE (1 of 2 - PCV) 11/14/1989 HIV SCREENING 11/14/1998 HEPATITIS C SCREENING 11/10/2001 DTAP/TDAP/TD VACCINES (1 - Tdap) 11/14/2002 HEPATITIS B VACCINE (1 of 3 - 19+ 3-dose series) 11/14/2002 DEPRESSION SCREENING 05/10/2023 COVID-19 VACCINE (1 - 2023-2 5 season) 2024 INFLUENZA VACCINE (#1) 2024 ZOSTER VACCINE (1 of 2) 11/14/2033 HIB VACCINE Aged Out No longer eligi ble based on patient's age to complete this topic HPV VACCINE Aged Out No longer eligi ble based on patient's age to complete this topic MENINGOCOCCAL VACCINE Aged Out No rudy beth eligible based on patient's age to complete this topic
--- OUTSIDE RECORDS SUMMARY | 2024-05-07 02:45 | XMS_ITS | Encounter Summary ---
Author Organization [facility] Address [address] 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 Name Role Phone Unavailable Primary Care Provider Unavailabl e Reason for Visit * Reason Comments Lift Test Unique Lift Screen Encounter Details Date Type Department Care Team (Latest Contact Info) Description 03/18/2015 9:58 AM BANQUET BARTENDER - 03/18/2015 11:59 PM BANQUET BARTENDER Hospital Encounter [facility] WORK [facility] [address] [place] [address] Eleonora Goins, DO [address] [place] [address] Discharge Disposition: Home or Self Care Social History Tobacco Use Types Packs/Day Years Used Date Smoking Tobacco: Every Day Alcohol Use Standard Drinks/Week Comments Yes 0 (1 standard drink = 0.6 oz pur e alcohol) 2-3 daily Sex and Gender Information Value Date Recorded Sex Assigned at Not on file Gender Identity Not on file Sexual Orientation Not on file documented as of this encounter Medications at Time of Discharge Medication Sig Dispensed Refills Start Date End Date aspirin (ASPIRIN) 81 MG chew tablet Take 81 mg by mouth once daily documented as of this encounter Progress Notes * Anum Vogel PTA - 03/18/2015 10:35 AM CST Patient referred for lift test. Refer to scanning for report. Unique UET BARTENDER documented in this encounter Plan of Treatment Not on file documented as of this encounter Visit Diagnoses Diagnosis Examination, physical, employee Health examination of defined subpopulation documented in this encounter
--- OUTSIDE RECORDS SUMMARY | 2024-05-07 03:04 | XMS_ITS | Encounter Summary ---
Author Name [facility] Address [address] [place] [address] Care Team Providers Care Human Resources Training Manager Name Role Phone TANJA RIVAS Primary Care Provider Unavailabl e Insurance Providers: All historical and current Section Date Range: From patient's date of to the date document was created. This section includes the names of all active insurance providers for the patient. Insurance Provider Type of Coverage Plan Name Start of Policy Coverage End of Policy Coverage Group Number Member ID Insurance Provider's Telephone Number Policy Ngo's Name Patient's Relationship to Policy Ngo [employer] PRESCRIPT ION RX PLAN Nov 19, 2021 [id number] [phone] Lena HDEZ PATIENT [facility] May 10, 2022 [id number] [phone] Lena [facility]DEZ PATIENT [facility] POINT OF SERVICE [facility] Nov 19, 2021 [id number] [phone] Lena HDEZ PATIENT Selected Encounter This section includes the information on record at [place] for the Encounter. Date/Time Encounter Type Encounter Description Reason Provider Source Oct 21, 2023 10:41 AM Outpatient Encounter TELEPHONE TRIAGE ERICK DURAN Encounter Template Text not used by [facility] Plan of Treatment: Future Appointments (+ 6 months) and Future Tests (+/- 45 days) The Plan of Treatment section includes future care activities for the patient from all [facility] treatmentfacilities. This section includes future appointments and future orders which are active, pending or scheduled. Future Appointments This section includes appointments that were scheduled to occur 6 months from the date of the Encounter, up to a maximum of 20 appointments. The data comes from all [place] treatment facilities. Appointment Date/Time Appointment Type Appointme nt Facility Name Mar 01, 2024 09:30 AM AMBULATORY - MEDICINE [facility] Social History: Smoking Status (Most current) and Tobacco Use (All prior to encounter date) This section includes the most current, and the historical, smoking and tobacco- related health factors from the [place] facility where the Encounter took place. Current Smoking Status This section includes the most current smoking, or tobacco-related health factor, from the [place] facility where the Encounter took place. Date/Time Current Smoking Status Comment Facil ity Jul 31, 2022 09:00 AM VA-TOBACCO USER EVERY DAY [facility] Tobacco Use History This section includes a history of the smoking, or tobacco-related health factors, that were collected on or before the date of the Encounter. The data comes from the [facility] where the Encounter took place. 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 This section includes ALL of a patient's completed or amended [place] Advance and Rescinded Directives. The entries below indicate that a directive exists for the patient, but an actual copy is not included with this document. The data comes from all [facility]. Date Advance Directives Provider Source Feb 04, 2015 ADVANCE DIRECTIVE DISCUSSION [facility] Jan 28, 2015 ADVANCE DIRECTIVE DISCUSSION [facility] Encounter Notes: All associated encounter notes This section contains the clinical notes associated to the Encounter. Date/Time Encounter Note(s) Provider Source Oct 21, 2023 10:41 AM PHARMACY NOTE: LOCAL TITLE: PHARMACY CONTACT CENTER NOTE STANDARD TITLE: PHARMACY NOTE DATE OF NOTE: OCT 21, 2023@10:41 ENTRY DATE: OCT 21, 2023@10:41:08 AUTHOR: ERICK DURAN EXP COSIGNER: URGENCY: STATUS: COMPLETED MEDICATION RENEW [id number] SUBSTANCE: Who is contacting the [place]? /Patient Contact via: Phone Requesting renewal of medication: CHOLECALCIF 50MCG (D3-2,000UNIT) TAB [id number] 100 08/05/2023 08/04/2022 04/16/2023 1 HEATH MISHRA 1.43 TAKE ONE TABLET BY MOUTH ONCE A DAY FOR VITAMIN D DEFICIENCY Please send medication: Mail Disposition: Notification forwarded to provider for review of renewal request. 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
--- OUTSIDE RECORDS SUMMARY | 2024-05-07 03:04 | XMS_ITS | Continuity of Care Document ---
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 It does not include entries that were removed or entered in error. Problem Status Onset Date Problem Type Date of Resolution Comments Source H/O: attempted suicide Active 015 Condition Feb 04, 2015 Entered By: GRETCHEN GONZALES Comment: gun- did not shoot- friend intervened [facility] Posttraumatic stress disorder Active 010 Condition Feb 04, 2015 Entered By: GRETCHEN GONZALES Comment: Dx'd 01/28/15 [facility] Arthritis of knee Active Condition [facility] Chronic back pain Active Condition [facility] Disorder of shoulder region Active Condition [facility] Ganglion cyst Active Condition [facility] Hyperlipidemia Active Condition [facility] Prediabetes (SCT 674151263) Active Condition [facility] Sleep Apnea (SCT 54520993) Active Condition [facility] Tobacco use Active Condition [facility] Vitamin D Deficiency (SCT 3162718) Active Condition [facility] pneumonia Inactive Condition [facility] visit for: follow-up exam Inactive Condition DoD insomnia Active Condition DoD joint pain, localized in the knee Active Condition DoD tinnitus Active Condition DoD lower back pain Active Condition DoD anxiety disorder NOS Active Condition DoD visit for: [facility] physical medical evaluation board (MEB) Active Condition DoD periarthritis of shoulder right Active Condition DoD assess patient condition work-related occupational disease Active Condition DoD phase of life or life circumstance problem Active Condition DoD adjustment disorder Active Condition DoD prehypertension Active Condition DoD arthropathy shoulder region Active Condition DoD muscle weakness Active Condition DoD joint stiffness of the shoulder Active Condition DoD primary insomnia Inactive Condition DoD visit for: screening mental / developmental disorders Inactive Condition DoD Aftercare Following Surgery Of Musculoskeletal System Inactive Condition DoD Observation For Suspected Condition Inactive Condition DoD visit for: preoperative orthopedic exam Inactive Condition DoD ankle sprain left Inactive Condition DoD ankle joint pain Active Condition DoD shoulder sprain Inactive Condition DoD Removal Of Sutures Inactive Condition Do D open wound of face forehead Inactive Condition DoD visit for: administrative purpose Inactive Condition DoD Antibody Response Inactive Condition DoD assessment of patient condition work status Active Condition DoD joint pain, localized in the shoulder Active Condition DoD subluxation shoulder joint right Inactive Condition DoD visit for: occupational health / fitness exam Active Condition DoD Patient Education - Injury Prevention Active Condition DoD sleep disturbances Active Condition DoD Need For Vaccination Against Bacterial Diseases Inactive Condition DoD Intervention And Counseling On Cessation Of Tobacco Use Active Condition DoD nicotine dependence Active Condition DoD assessment of patient condition work-related Active Condition DoD Laboratory Studies Inactive Condition Do D visit for: services physical pre-deployment Active Condition DoD visit for: routine eye exam Inactive Condition DoD ankle sprain Inactive Condition DoD visit for: ears / hearing exam Active Condition DoD ankle sprain right Inactive Condition Do D Need For Vaccination Against Smallpox Active Condition DoD joint instability shoulder region Active Condition DoD Other Physical Therapy Active Condition DoD nicotine dependence continuous Active Condition encouraged smoking cessation DoD shoulder strain left Inactive Condition 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 meds as directed DoD visit for: screening exam pulmonary tuberculosis Inactive Condition DoD visit for: services physical Active Condition Normal exam. Documents completed and forwarded to [facility] for physician approval and administrative action. DoD visit for: issue medical certificate fitness Inactive Condition DoD Preventive Medicine Established Patient Checkup Adult 18-39 Years Inactive Condition DoD refractive error - myopia Active Condition MANIFEST = PRN WEAR. DoD routine ophthalmological exam Inactive Condition DoD Patient Education Active Condition DoD common cold Inactive Condition DoD visit for: ears/hearing exam following abn hearing screening Inactive Condition DoD visit for: laboratory Inactive Condition DoD Need For Vaccination Hepatitis B Inactive Condition DoD visit for: issue medical certificate Active Condition DoD Need For Vaccination Against Influenza Inactive Condition [facility] DoD Need For Vaccination Hepatitis A Inactive Condition DoD nausea Inactive Condition DoD cough Inactive Condition DoD upper respiratory infection Inactive Condition DoD special symptoms or syndromes, not elsewhere classified Inactive Condition DoD refractive error Active Condition DoD visit for: services physical accession Inactive Condition DoD Diagnosis: ICD-10-CM Z72.[address] [facility] Medications Combined list of outpatient medications from Department of Defense and Veterans Affairs facilities.Medications provided include 1) outpatient medications from the last 15 months, and 2) patient-reported medications. Medication Details Route Status Patient Instructions Prescription Expires Prescription Number Last Dispense Date Ordering Provider Order Date Order Qty Source CHOLECALCIF FRANNY 25MCG (1,000UNIT) TAB TAKE ONE TABLET BY MOUTH ONCE A DAY FOR VITAMIN D DEFICIEN CY ORAL ACTIVE 10/21/2024 [id number] TANJA RIVAS 2023 100 [facility] CHOLECALCIF FRANNY 50MCG (2,000UNIT) TAB TAKE ONE TABLET BY MOUTH ONCE A DAY FOR VITAMIN D DEFICIEN CY ORAL 08/05/2023 [id number] TADSHIVA SA D 2022 100 [facility] NAPROXEN 500MG TAB TAKE ONE TABLET BY MOUTH TWICE DAILY NEEDED FOR PAIN TAKE WITH FOOD. ORAL 03/02/2024 [id number] 4 TANJA RIVAS 2022 180 [facility] Allergies, Adverse Reactions, Alerts Combined list of allergies from Department of Defense and Veterans Affairs facilities. It does not include entries that were removed or entered in error. Substance Category Reaction Severity Reaction type Status Date Reported Comments Source NO OUTPUT FOR NCID 334676 Drug allergy (disorder) active 12/22/2007 [facility] Immunizations Combined list of available immunizations from the Department of Defense and Veterans Affairs facilities. 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 (MED) complet ed influenza virus vaccine, live, attenuate d, for intranasa l use DoD anthrax vaccine 5 2011 [id number] [employer] [facility] ([facility]) complet ed anthrax vaccine DoD varicella virus vaccine 1 2010 [id number] 21 Unknown (UNK) Not Given varicella virus vaccine DoD influenza virus vaccine, split virus (incl. purified surface antigen)-reti red CODE 1 2010 [id number] Unknown (UNK) comple t ed influenza virus vaccine, split virus (incl. purified surface antigen)- retired CODE DoD anthrax vaccine 4 2010 [id number] [facility] ([facility]) complet ed anthrax vaccine DoD influenza virus vaccine, split virus (incl. purified surface antigen)-reti red CODE 1 2009 [id number] 15 Unknown (UNK) comple t ed influenza virus vaccine, split virus (incl. purified surface antigen)- retired CODE DoD anthrax vaccine 3 2009 [id number] Unknown (UNK) comple t ed anthrax vaccine DoD typhoid Vi capsular polysaccharid e vaccine 1 2009 [id number] Unknown (UNK) comple t ed typhoid Vi capsular polysacch aride vaccine DoD anthrax vaccine 2 2008 [id number] [facility]) complet ed anthrax vaccine DoD Novel influenza-H1N 1-09, injectable 1 2008 [id number] 127 [email or web address] (NOV) complet Novel influenza -T0W0-43, injectabl e DoD influenza virus vaccine, live, attenuated, for intranasal use 1 2008 [id number] 111 [employer] (MED) complet influenza virus vaccine, live, attenuate d, for intranasa l use DoD influenza virus vaccine, live, attenuated, for intranasal use 1 2007 [id number] 111 [employer] (MED) complet influenza virus vaccine, live, attenuate d, for intranasa l use [facility] vaccinia (smallpox) vaccine 1 2007 MERI LOCKHART [id number] Other (OTH) complet ed vaccinia (smallpox ) vaccine DoD anthrax vaccine 1 2007 [id number] [facility] ([facility]) complet ed anthrax vaccine DoD typhoid Vi capsular polysaccharid e vaccine 1 2007 [id number] [place] (PD) complet typhoid Vi capsular polysacch aride vaccine DoD tuberculin skin test; purified protein derivative solution, intradermal 1 2007 Unknown, Provider [id number] [place] (PD) complet tuberculi n skin test; purified protein derivativ e solution, intraderm al [facility] influenza virus vaccine, live, attenuated, for intranasal use 1 2006 [id number] 111 [employer] (MED) complet influenza virus vaccine, live, attenuate d, for intranasa l use [facility] hepatitis A vaccine, adult dosage 2 2006 Unknown, Provider [id number] [employer] (MSD) complet ed hepatitis A vaccine, adult dosage DoD hepatitis A vaccine, adult dosage 2 2006 [id number] 52 Unknown (UNK) comple t ed hepatitis A vaccine, adult dosage DoD hepatitis B vaccine, adult dosage 3 2005 [id number] 43 San[employer] Paste[employer] ([facility]) complet ed hepatitis B vaccine, adult dosage DoD varicella virus vaccine 0 2005 21 () Not Given varicella virus vaccine DoD influenza virus vaccine, live, attenuated, for intranasal use 1 2005 Unknown, Provider [id number] 111 [employer] (MED) complet ed influenza virus vaccine, live, attenuate d, for intranasa l use DoD hepatitis A vaccine, adult dosage 1 2005 BAYLEE HAWLEY [id number] 52 [facility] ([facility]) complet ed hepatitis A vaccine, adult dosage DoD influenza virus vaccine, live, attenuated, for intranasal use 1 2005 BAYLEE HAWLEY [id number] 111 [employer] (MED) complet ed influenza virus vaccine, live, attenuate d, for intranasa l use DoD hepatitis B vaccine, adult dosage 2 2005 Unknown, Provider [id number] 43 [facility] ([facility] complet ed hepatitis B vaccine, adult dosage DoD measles, mumps and rubella virus vaccine 1 2005 Unknown, Provider [id number] Merck (MSD) complet ed measles, mumps and rubella virus vaccine DoD poliovirus vaccine, inactivated 1 2005 Unknown, Provider [id number] San[employer]i Pasteur ([facility]) complet ed polioviru s vaccine, inactivat ed DoD influenza virus vaccine, split virus (incl. purified surface antigen)-reti red CODE 1 2005 Unknown, Provider [id number] 15 Sanofi Pasteur ([facility]) complet ed influenza virus vaccine, split virus (incl. purified surface antigen)- retired CODE DoD hepatitis B vaccine, adult dosage 1 2005 Unknown, Provider [id number] 43 [facility] (SKB) complet ed hepatitis B vaccine, adult dosage DoD tuberculin skin test; purified protein derivative solution, intradermal 1 2005 Unknown, Provider [id number] [place] (PD) complet ed tuberculi n skin test; purified protein derivativ e solution, intraderm al DoD meningococcal polysaccharid e (groups A, C, Y and W-135) diphtheria toxoid conjugate vaccine (MCV4P) 1 2005 Unknown, Provider [id number] 114 [employer] Paste[employer] ([facility]) complet ed meningoco ccal polysacch aride (groups A, C, Y and W-135) diphtheri a toxoid conjugate vaccine (MCV4P) DoD tetanus toxoid, reduced diphtheria toxoid, and acellular pertu is vaccine, adsorbed 1 2005 Unknown, Provider [id number] 115 Sanofi Pasteur ([facility]) complet ed tetanus toxoid, reduced diphtheri a toxoid, and acellular pertussis vaccine, adsorbed DoD TDAP 2005 115 complet ed [facility] Results Combined list of recent chemistry, hematology and other laboratory results from Department of Defense and Veterans Affairs, ranging from 15 months to all on record, depending upon the facility. Order Name Results Value Reference Range Date Interpretation Specimen Comments Source LIPID PANEL (STL) CHOLESTERO L [MASS/VOLU ME] IN SERUM OR PLASMA 178 mg/dL 0 - 200 07/31 Specimen Type: PLASMA Comment: No hemolysis noted. Ordering Provider: KAYA MISHRA Report Released Date/Time: Jul 31, 2022 09:10 AM Reporting Lab: [facility] [address] [facility] [address] Performing Lab: [facility] [address] [place] [phone] [facility] LIPID PANEL (STL) TRIGLYCERI DE [MASS/VOLU ME] IN SERUM OR PLASMA 244 mg/dL 0 - 150 07/31 H Specimen Type: PLASMA Comment: No hemolysis noted. Ordering Provider: KAYA MISHRA Report Released Date/Time: Jul 31, 2022 09:10 AM Reporting Lab: [facility] [address] [place] [phone] Performing Lab: [address] [address] [facility] LIPID PANEL (STL) CHOLESTERO L IN LDL [MASS/VOLU ME] IN SERUM OR PLASMA BY SHASTA Alvarez 100 mg/dL 07/31 Specimen Type: PLASMA Comment: No hemolysis noted. Ordering Provider: KAYA MISHRA Report Released Date/Time: Jul 31, 2022 09:10 AM Reporting Lab: [facility] [address] [address] Performing Lab: [facility] [address] [place] [phone] [facility] LIPID PANEL (STL) CHOLESTERO L IN HDL [MASS/VOLU ME] IN SERUM OR PLASMA 29 mg/dL 40 07/31 L Specimen Type: PLASMA Comment: No hemolysis noted. Ordering Provider: KAYA MISHRA Report Released Date/Time: Jul 31, 2022 09:10 AM Reporting Lab: [place] [address] [facility] [address] Performing Lab: [place] [address] [facility] [address] [facility] COMPREHEN SIVE METABOLIC PANEL CREATININE [MASS/VOLU ME] IN SERUM OR PLASMA 0.88 mg/dL 0.7 - 1.3 07/31 Specimen Type: PLASMA Comment: No hemolysis noted. Ordering Provider: KAYA MISHRA Report Released Date/Time: Jul 31, 2022 09:10 AM Reporting Lab: [place] [address] [facility] [address] Performing Lab: [place] [address] [facility] [address] [facility]ABOLIC PANEL UREA NITROGEN [MASS/VOLU ME] IN SERUM OR PLASMA 17 mg/dL 9 - 07/31 Specimen Type: PLASMA Comment: No hemolysis noted. Ordering Provider: KAYA MISHRA Report Released Date/Time: Jul 31, 2022 09:10 AM Reporting Lab: [place] [address] [facility] [address] Performing Lab: [address] [address] [facility] METABOLIC PANEL GLUCOSE [MASS/VOLU ME] IN SERUM OR PLASMA 93 mg/dL 72 - 99 07/31 Specimen Type: PLASMA Comment: No hemolysis noted. Ordering Provider: KAYA MISHRA Report Released Date/Time: Jul 31, 2022 09:10 AM Reporting Lab: [place] [address] [facility] [address] Performing Lab: [place] [address] [facility] [address] [facility]OL[facility] PANEL SODIUM [MOLES/VOL UME] IN SERUM OR PLASMA 138 meq/L 136 - 145 07/31 Specimen Type: PLASMA Comment: No hemolysis noted. Ordering Provider: KAYA MISHRA Report Released Date/Time: Jul 31, 2022 09:10 AM Reporting Lab: [place] [address] [facility] [address] Performing Lab: [facility] [address] [address] [facility]OLIC PANEL POTASSIUM [MOLES/VOL UME] IN SERUM OR PLASMA 4.2 meq/L 3.5 - 5 07/31 Specimen Type: PLASMA Comment: No hemolysis noted. Ordering Provider: KAYA MISHRA Report Released Date/Time: Jul 31, 2022 09:10 AM Reporting Lab: [facility] [address] [address] Performing Lab: [facility] [address] [address] [facility] METABOLIC PANEL CHLORIDE [MOLES/VOL UME] IN SERUM OR PLASMA 106 meq/L 98 - 107 07/31 Specimen Type: PLASMA Comment: No hemolysis noted. Ordering Provider: KAYA MISHRA Report Released Date/Time: Jul 31, 2022 09:10 AM Reporting Lab: [facility] [address] [facility] [address] Performing Lab: [place] [address] [facility] [address] [facility]ABOLIC PANEL CARBON DIOXIDE, TOTAL [MOLES/VOL UME] IN SERUM OR PLASMA 24 meq/L 22 - 31 07/31 Specimen Type: PLASMA Comment: No hemolysis noted. Ordering Provider: KAYA MISHRA Report Released Date/Time: Jul 31, 2022 09:10 AM Reporting Lab: [address] [address] Performing Lab: [address] [address] [facility] CALCIUM [MASS/VOLU ME] IN SERUM OR PLASMA 9.5 mg/dL 8.4 - 10.4 07/31 Specimen Type: PLASMA Comment: No hemolysis noted. Ordering Provider: KAYA MISHRA Report Released Date/Time: Jul 31, 2022 09:10 AM Reporting Lab: [place] [address] [facility] [address] Performing Lab: [address] [address] [facility]OL[facility] PANEL PROTEIN [MASS/VOLU ME] IN SERUM OR PLASMA 7.4 g/dL 6 - 8.6 07/31 Specimen Type: PLASMA Comment: No hemolysis noted. Ordering Provider: KAYA MISHRA Report Released Date/Time: Jul 31, 2022 09:10 AM Reporting Lab: [address] [address] Performing Lab: [address] [address] [facility]ABOLIC PANEL ALBUMIN [MASS/VOLU ME] IN SERUM OR PLASMA 4.2 g/dL 3.4 - 5 07/31 Specimen Type: PLASMA Comment: No hemolysis noted. Ordering Provider: KAYA MISHRA Report Released Date/Time: Jul 31, 2022 09:10 AM Reporting Lab: [facility] [address] [address] Performing Lab: [address] [address] [facility] PANEL BILIRUBIN. TOTAL [MASS/VOLU ME] IN SERUM OR PLASMA 0.4 mg/dL 0.2 - 1.2 07/31 Specimen Type: PLASMA Comment: No hemolysis noted. Ordering Provider: KAYA MISHRA Report Released Date/Time: Jul 31, 2022 09:10 AM Reporting Lab: [address] [address] Performing Lab: [address] [address] [facility]PREH[facility] SIVE METABOLIC PANEL ALKALINE PHOSPHATAS E [ENZYMATIC ACTIVITY/V OLUME] IN SERUM OR PLASMA 93 U/L 40 - 150 07/31 Specimen Type: PLASMA Comment: No hemolysis noted. Ordering Provider: KAYA MISHRA Report Released Date/Time: Jul 31, 2022 09:10 AM Reporting Lab: [address] [address] Performing Lab: [address] [address] [facility] PAN[facility] ASPARTATE AMINOTRANS FERASE [ENZYMATIC ACTIVITY/V OLUME] IN SERUM OR PLASMA 23 U/L 5 - 34 07/31 Specimen Type: PLASMA Comment: No hemolysis noted. Ordering Provider: KAYA MISHRA Report Released Date/Time: Jul 31, 2022 09:10 AM Reporting Lab: [address] [address] Performing Lab: [address] [address] [facility] PAN[facility] ALANINE AMINOTRANS FERASE [ENZYMATIC ACTIVITY/V OLUME] IN SERUM OR PLASMA 21 U/L 8 - 40 07/31 Specimen Type: PLASMA Comment: No hemolysis noted. Ordering Provider: KYAA MISHRA Report Released Date/Time: Jul 31, 2022 09:10 AM Reporting Lab: [address] [address] Performing Lab: [address] [address] [facility] PANEL GLOMERULAR FILTRATION RATE/1.73 SQ M.PREDICTE D [VOLUME RATE/AREA] IN SERUM, PLASMA OR BLOOD BY CREATININE -BASED FORMULA (CKD-EPI 2020) 112.9 <60 - 60 07/31 Specimen Type: PLASMA Comment: No hemolysis noted. Ordering Provider: KAYA MISHRA Report Released Date/Time: Jul 31, 2022 09:10 AM Reporting Lab: [address] [address] Performing Lab: [address] [address] [facility] HGA1C HEMOGLOBIN A1C/HEMOGL OBIN.TOTAL IN BLOOD 5.8 4.0 - 6.0 07/31 Specimen Type: BLOOD No comment entered. Ordering Provider: KAYA MISHRA Report Released Date/Time: Jul 31, 2022 09:10 AM Reporting Lab: [address] [address] Performing Lab: [address] [address] [facility] CBC LEUKOCYTES [#/VOLUME] IN BLOOD BY AUTOMATED COUNT 9.0 10*3/uL 3.6 - 11.2 07/31 Specimen Type: BLOOD No comment entered. Ordering Provider: KAYA MISHRA Report Released Date/Time: Jul 31, 2022 09:10 AM Reporting Lab: [address] [address] Performing Lab: [address] [address] [facility] CBC ERYTHROCYT ES [#/VOLUME] IN BLOOD BY AUTOMATED COUNT 5.12 10*6/uL 4.10 - 5.70 07/31 Specimen Type: BLOOD No comment entered. Ordering Provider: KAYA MISHRA Report Released Date/Time: Jul 31, 2022 09:10 AM Reporting Lab: [address] [address] Performing Lab: [address] [phone] [place] [address] CBC HEMOGLOBIN [MASS/VOLU ME] IN BLOOD 15.3 g/dL 13.1 - 16.8 07/31 Specimen Type: BLOOD No comment entered. Ordering Provider: KAYA MISHRA Report Released Date/Time: Jul 31, 2022 09:10 AM Reporting Lab: [address] [address] Performing Lab: [address] [phone] [place] [address] CBC HEMATOCRIT [VOLUME FRACTION] OF BLOOD 45.4 38.2 - 48.4 07/31 Specimen Type: BLOOD No comment entered. Ordering Provider: KAYA MISHRA Report Released Date/Time: Jul 31, 2022 09:10 AM Reporting Lab: [address] [address] Performing Lab: [address] [address] [facility] CBC MCV [ENTITIC VOLUME] BY AUTOMATED COUNT 88.7 fL 80.0 - 100.0 07/31 Specimen Type: BLOOD No comment entered. Ordering Provider: KAYA MISHRA Report Released Date/Time: Jul 31, 2022 09:10 AM Reporting Lab: [address] [address] Performing Lab: [address] [address] [facility] CBC MCH [ENTITIC MASS] BY AUTOMATED COUNT 29.9 pg 27.0 - 34.0 07/31 Specimen Type: BLOOD No comment entered. Ordering Provider: KAYA MISHRA Report Released Date/Time: Jul 31, 2022 09:10 AM Reporting Lab: [address] [address] Performing Lab: [address] [phone] [place] [address] CBC MCHC [MASS/VOLU ME] BY AUTOMATED COUNT 33.7 g/dL 33.0 - 36.0 07/31 Specimen Type: BLOOD No comment entered. Ordering Provider: KAYA MISHRA Report Released Date/Time: Jul 31, 2022 09:10 AM Reporting Lab: [address] [address] Performing Lab: [address] [address] [facility] CBC PLATELETS [#/VOLUME] IN BLOOD BY AUTOMATED COUNT 304 10*3/uL 150 - 400 07/31 Specimen Type: BLOOD No comment entered. Ordering Provider: KAYA MISHRA Report Released Date/Time: Jul 31, 2022 09:10 AM Reporting Lab: [address] [address] Performing Lab: [address] [address] [facility] CBC PLATELET MEAN VOLUME [ENTITIC VOLUME] IN BLOOD BY AUTOMATED COUNT 10.1 fL 7.5 - 11.2 07/31 Specimen Type: BLOOD No comment entered. Ordering Provider: KAYA MISHRA Report Released Date/Time: Jul 31, 2022 09:10 AM Reporting Lab: [address] [address] Performing Lab: [address] [address] [facility] CBC ERYTHROCYT E DISTRIBUTI ON WIDTH [RATIO] BY AUTOMATED COUNT 12.7 11.8 - 15.1 07/31 Specimen Type: BLOOD No comment entered. Ordering Provider: KAYA MISHRA Report Released Date/Time: Jul 31, 2022 09:10 AM Reporting Lab: [facility] [address] [address] Performing Lab: [facility] [address] [address] [facility] CBC LYMPHOCYTE S/100 LEUKOCYTES IN BLOOD BY AUTOMATED COUNT 33 07/31 Specimen Type: BLOOD No comment entered. Ordering Provider: KAYA MISHRA Report Released Date/Time: Jul 31, 2022 09:10 AM Reporting Lab: [facility] [address] [facility] [address] Performing Lab: [facility] [address] [place] [address] [facility] CBC MONOCYTES/ 100 LEUKOCYTES IN BLOOD BY AUTOMATED COUNT 8 07/31 Specimen Type: BLOOD No comment entered. Ordering Provider: KAYA MISHRA Report Released Date/Time: Jul 31, 2022 09:10 AM Reporting Lab: [facility] [address] [address] Performing Lab: [facility] [address] [place] [phone] [facility] CBC NEUTROPHIL S/100 LEUKOCYTES IN BLOOD BY AUTOMATED COUNT 54 07/31 Specimen Type: BLOOD No comment entered. Ordering Provider: KAYA MISHRA Report Released Date/Time: Jul 31, 2022 09:10 AM Reporting Lab: [facility] [address] [address] Performing Lab: [facility] [address] [place] [phone] [facility] CBC EOSINOPHIL S/100 LEUKOCYTES IN BLOOD BY AUTOMATED COUNT 4 07/31 Specimen Type: BLOOD No comment entered. Ordering Provider: KAYA MISHRA Report Released Date/Time: Jul 31, 2022 09:10 AM Reporting Lab: [facility] [address] [place] [phone] Performing Lab: [facility] [address] [facility] [facility] [address] [facility] CBC BASOPHILS/ 100 LEUKOCYTES IN BLOOD BY AUTOMATED COUNT 1 07/31 Specimen Type: BLOOD No comment entered. Ordering Provider: KAYA MISHRA Report Released Date/Time: Jul 31, 2022 09:10 AM Reporting Lab: [place] [address] [address] [facility] [address] Performing Lab: [address] [address] [facility] CBC LYMPHOCYTE S [#/VOLUME] IN BLOOD BY AUTOMATED COUNT 2.95 10*3/uL 0.77 - 4.50 07/31 Specimen Type: BLOOD No comment entered. Ordering Provider: KAYA MISHRA Report Released Date/Time: Jul 31, 2022 09:10 AM Reporting Lab: [place] [address] [facility] [address] Performing Lab: [address] [address] [facility] CBC MONOCYTES [#/VOLUME] IN BLOOD BY AUTOMATED COUNT 0.71 10*3/uL 0.19 - 1.50 07/31 Specimen Type: BLOOD No comment entered. Ordering Provider: KAYA MISHRA Report Released Date/Time: Jul 31, 2022 09:10 AM Reporting Lab: [facility] [address] Performing Lab: [facility] [address] [place] [phone] [facility] CBC NEUTROPHIL S [#/VOLUME] IN BLOOD BY AUTOMATED COUNT 4.91 10*3/uL 2.10 - 8.00 07/31 Specimen Type: BLOOD No comment entered. Ordering Provider: KAYA MISHRA Report Released Date/Time: Jul 31, 2022 09:10 AM Reporting Lab: [place] [address] [facility] [address] Performing Lab: [place] [address] [facility] [address] [facility] CBC EOSINOPHIL S [#/VOLUME] IN BLOOD BY AUTOMATED COUNT 0.39 10*3/uL 0.00 - 0.60 07/31 Specimen Type: BLOOD No comment entered. Ordering Provider: KAYA MISHRA Report Released Date/Time: Jul 31, 2022 09:10 AM Reporting Lab: [address] [address] Performing Lab: [address] [address] [facility] CBC BASOPHILS [#/VOLUME] IN BLOOD BY AUTOMATED COUNT 0.06 10*3/uL 0.00 - 0.20 07/31 Specimen Type: BLOOD No comment entered. Ordering Provider: KAYA MISHRA Report Released Date/Time: Jul 31, 2022 09:10 AM Reporting Lab: [address] [address] Performing Lab: [address] [address] [facility] FOLATE (STL-MA) FOLATE [MASS/VOLU ME] IN SERUM OR PLASMA >20ng/mL 7 - 20 07/31 H Specimen Type: SERUM No comment entered. Ordering Provider: KAYA MISHRA Report Released Date/Time: Jul 31, 2022 09:10 AM Reporting Lab: [address] [address] Performing Lab: [address] [address] [facility] TSH (MA-PB-ST L) THYROTROPI N [UNITS/VOL UME] IN SERUM OR PLASMA 0.822 u[IU]/mL 0.47 - 5 07/31 Specimen Type: SERUM Comment: No hemolysis noted. Ordering Provider: KAYA MISHRA Report Released Date/Time: Jul 31, 2022 09:10 AM Reporting Lab: [address] [address] Performing Lab: [address] [address] [facility] VITAMIN D, 25-HYDROX Y 25-HYDROXY VITAMIN D3 [MASS/VOLU ME] IN SERUM OR PLASMA 19.5 ng/mL 30 - 96 07/31 L Specimen Type: SERUM No comment entered. Ordering Provider: KAYA MISHRA Report Released Date/Time: Jul 31, 2022 09:10 AM Reporting Lab: [address] [address] Performing Lab: [address] [address] [facility] HIV COMBO FOURTH GENERATIO N (STL) HIV 1+2 AB+HIV1 P24 AG [PRESENCE] IN SERUM OR PLASMA BY IMMUNOASSA Y Nonreact dave 07/31 Specimen Type: SERUM No comment entered. Ordering Provider: KAYA MISHRA Report Released Date/Time: Jul 31, 2022 09:36 AM Reporting Lab: [address] [address] Performing Lab: [address] [address] [facility] B12 COBALAMIN (VITAMIN B12) [MASS/VOLU ME] IN SERUM OR PLASMA 405 pg/mL 213 - 816 07/31 Specimen Type: SERUM No comment entered. Ordering Provider: KAYA MISHRA Report Released Date/Time: Jul 31, 2022 09:10 AM Reporting Lab: [address] [address] Performing Lab: [address] [address] [facility] HEP C Ab HCV Ab (STL) HEPATITIS C VIRUS AB [PRESENCE] IN SERUM Nonreact dave 07/31 Specimen Type: SERUM No comment entered. Ordering Provider: KAYA MISHRA Report Released Date/Time: Jul 31, 2022 09:36 AM Reporting Lab: [facility] [address] [facility] [address] Performing Lab: [facility] [address] [facility] [facility] [address] [facility] Encounters Combined list of: 1) Encounters from Department of [facility] facilities going back up to thelast 18 months. 2) Encounters from the Department of [facility] facilities going back up to 280 months. Location Location Details Encounter Type Encounter Number Reason For Visit Attending Provider ADM Date DC Date Status Disposition Source [facility](PES Optometry -Trainee) OUTPATIENT [id number] LIOR COLEMAN 09/11 Released w/o Limitations [facility](P ES Optomet ry-Tomas nee) [facility]) OUTPATIENT [id number] EMILIANO MATHUR 11/13 Released w/o Limitations [facility](T [facility] Bypass) [facility](Pr im Care Ed) OUTPATIENT [id number] upset stomach [place] Yes[place] 12/21 Released with Work/Duty Limitations [facility]( Prim Care Ed) [facility](Pr im Care Ed) OUTPATIENT [id number] nausea [place] eYsenia 01/14 Sick at Home/Quarter s [facility]( Prim Care Ed) [facility](Pr im Care Ed) OUTPATIENT [id number] follow up [place] Yesenia 01/15 Sick at Home/Quarter s [facility]( Prim Care Ed) [facility] [place] OUTPATIENT [id number] POR: Hep A and flumist BAYLEE HAWLEY 01/26 Released w/o Limitations [facility]( Immuniz ation Clinic [place] [facility]) [facility](Im munizatio n Cl Ed) OUTPATIENT [id number] flu mist MARKY DANIEL 02/18 Released w/o Limitations [facility]( Immuniz ation Cl Ed) [facility](ZZ[facility] D [facility]) OUTPATIENT [id number] INPROCE SSING/ 123 MSB/ HEP B/ G6PD FILIBERTO EARL 04/07 Released w/o Limitations [facility](ZZZ WBD [facility]) [facility] Primary Care) OUTPATIENT [id number] LABS ELISA MAGAÑA 07/19 Released w/o Limitations [facility] Primary [facility]) [facility](L Audiology , B[address] 37[address]) OUTPATIENT [id number] asymmet rical hearing loss, failed DOEHRS test on Jul 14 ARNALDO LEVINE 08/04 Released w/o Limitations [facility](LSL Audiolo gy, Bld[address] 3766) [facility] Primary Care) OUTPATIENT [id number] cold sx FÁTIMA FAY 08/30 Released w/o Limitations [facility] Primary Care) [facility](WBD Optometry ) OUTPATIENT [id number] NO CONTACT S DAVON WELLS 09/03 Released w/o Limitations [facility](WBD Optomet ry) [facility] Primary [facility]) OUTPATIENT [id number] Annual Physica l Health Assessm ent GABO VARELA 10/29 Released w/o Limitations [facility]) [facility] Primary [facility]) OUTPATIENT [id number] Flu Vaccina tion FÁTIMA FAY 03/02 Released w/o Limitations [facility]) [facility] Primary [facility]) OUTPATIENT [id number] phase 2 MANJU MORGAN 05/06 Released w/o Limitations [facility] Primary [facility]) [facility] Primary [facility]) OUTPATIENT [id number] dpp placeme nt MERI FARIAS 05/11 Released w/o Limitations [facility] Primary [facility]) [facility] Primary [facility]) OUTPATIENT [id number] shoulde r pain 2wks FÁTIMA FAY 05/31 Released with Work/Duty Limitations [facility] Primary Care) [facility](WBD Physical therapy) OUTPATIENT [id number] JORGE AYALA 06/03 Released w/o Limitations [facility](WBD Physica l therapy ) [facility](WBD Physical therapy) OUTPATIENT [id number] JORGE AYALA 06/06 Released w/o Limitations [facility](WBD Physica l therapy ) [facility](WBD Physical therapy) OUTPATIENT [id number] NAVIN DAVENPORT 06/08 Released w/o Limitations [facility](WBD Physica l therapy ) [facility](ZZZWB D Pre/Post Deploymen t) OUTPATIENT [id number] Predepl oyment FÁTIMA FAY 12/21 Released w/o Limitations [facility](ZZZ WBD Pre/Pos t Deploym ent) [facility](ZZZWB D Immunizat ion) OUTPATIENT [id number] Smallpo x MERI FARIAS 12/22 Released w/o Limitations [facility](ZZZ WBD Immuniz ation) [facility](ZZZWB D Pre/Post Deploymen t) OUTPATIENT [id number] hiv, ant, tyv FÁTIMA FAY 12/28 Released w/o Limitations [facility](ZZZ WBD Pre/Pos t Deploym ent) [facility](ZZZWB D Pre/Post Deploymen t) OUTPATIENT [id number] MODFÁTIMA SALINAS 02/21 Released w/o Limitations [facility](ZZZ WBD Pre/Pos t Deploym ent) [facility](WBD Physical Exam) OUTPATIENT [id number] PHA FÁTIMA FAY 02/23 Released w/o Limitations [facility](WBD Physica l Exam) [facility](WBD Primary Care) OUTPATIENT [id number] shoulde r injury, prev carlos as muscle spasm// silvana ROSA JORDAN A 02/28 Released with Work/Duty Limitations [facility](WBD Primary Care) [facility](WBD Primary Care) OUTPATIENT [id number] ROLLED ANKLE YESTERD AY PATRIC FERRER 03/27 Released with Work/Duty Limitations [facility](WBD Primary Care) [facility](ZZZWB D Pre/Post Deploymen t) OUTPATIENT [id number] hearing LEVIFÁTIMA REHMAN 07/31 Released w/o Limitations [facility](ZZZ WBD Pre/Pos t Deploym ent) [facility](WBD Primary Care) OUTPATIENT [id number] Pt injured ankle during trainin g this morning [facility] 08/16 Released w/o Limitations [facility](WBD Primary Care) [facility](WBD Primary Care) OUTPATIENT [id number] right ankle pain [facility] 08/20 Released w/o Limitations [facility](WBD Primary Care) [facility](WBD Optometry ) OUTPATIENT [id number] eye exam, need new Rx SIOMARA STRATTON P 03/26 [facility](WBD Optomet ry) [facility](ZZZWB D Pre/Post Deploymen t) OUTPATIENT [id number] pdp PETE BHATTI 04/16 Released w/o Limitations [facility](ZZZ WBD Pre/Pos t Deploym ent) [facility] OUTPATIENT [id number] 09/11 Released w/o Limitations Theater Facilit y [facility](ZZZWB D Pre/Post Deploymen t) OUTPATIENT [id number] 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 WILMER BAXTER 04/27 Released w/o Limitations [facility](ZZZ WBD Pre/Pos t Deploym ent) [facility](WBD Psycholog y) OUTPATIENT [id number] out-pro cessing MARLOMARKY SOLARES 07/17 Released w/o Limitations [facility](WBD Psychol ogy) [facility] [place] OUTPATIENT [id number] inproce ssing/d d 290 pdhra with pha/ppd /anthra x/inna t VANCE DAVIS 09/08 Released w/o Limitations [facility] [place] [facility] [facility] [facility] [place] OUTPATIENT [id number] AD INPROCE SSING 5TH ENGR/ME JANET RUBIO 09/16 Released w/o Limitations [facility] [place]) [facility] [place](User Experience Manager al Medicine) OUTPATIENT [id number] SHOULDE R PAIN SELAM SIDDIQUI 11/05 Released with Work/Duty Limitations [facility] [place](Inte [place]nal Medicin [place]) [facility] [place] [id number] f/u MRI BLANCA GR 12/02 Released with Work/Duty Limitations [facility] [place] [facility] [place] OUTPATIENT [id number] IMR/DD 2795/FL U/INNA T FLORENCIA MONTGOMERY 12/22 Released with Work/Duty Limitations [facility] [place] [facility] [place] [facility] [facility] [place]IENT [id number] Shoulde r joint pain YUDI HAZEL 12/29 Released w/o Limitations [facility] [place](Orth opedic) [facility] [place](ER) OUTPATIENT [id number] MALI ORTEGA 12/31 [facility] Limitations [facility] [place]) [place] [id number] DIANAMALI DAVIDSON Mustapha 01/08 Sick at Home/Quarter s [facility] [place] [facility] [place] [id number] ankle pain BLANCA GR TABITHA 01/29 Released with Work/Duty Limitations [facility] [place] [facility] [place] [id number] mri results BLANCA GR TABITHA 02/02 Released with Work/Duty Limitations [facility] [place] [facility] [place] [id number] ankle joint pain JOHANN DORADO CORBY 02/04 Released with Work/Duty Limitations [facility] [place] [facility] [place] [facility] [place]IENT [id number] f/u shoulde r YUDI HAZEL L 02/04 Released w/o Limitations [facility] [place] [facility] [place] [id number] Pre-op YUDI HAZEL L 02/06 Released w/o Limitations [facility] [place] [facility] [place] [facility] [place]) TELE CONSULT [id number] SELAM Owens 02/09 [facility] [place] [facility] [place] [id number] r shoulde r ESTRADAJOHANN MORALES CORBY 02/11 Released with Work/Duty Limitations [facility] [place] [facility] [place] [id number] MANUEL Mckeon 02/12 Released w/o Limitations [facility] [place] [facility] [place] [id number] WILLIE RIVERO 02/19 Released with Work/Duty Limitations [facility] [place] [facility] [place] [facility] [place] [id number] f/u l ankle sprain JOHANN DORADO 02/20 Released with Work/Duty Limitations [facility] [place] [facility] [place]) [place] [id number] suture removal YUDI Guy 03/05 Released w/o Limitations [facility] [place] [facility] [place]) [place]IENT [id number] moved from 30 mar 2011 per [facility] YUDI Chadwick 04/01 Released w/o Limitations [facility] [place] [facility] [place] [facility] [place] [id number] needing temp profile for shoulde r surgery BLANCA GR 04/08 Released with Work/Duty Limitations [facility] [place]) [facility] [place] [facility] [place] [id number] JOHANN DORADO CORBY 04/21 Released with Work/Duty Limitations [facility] [place] [facility] [place] [id number] MANUEL NEGRO 04/22 Released w/o Limitations [facility] [place] [facility] [place] [id number] CAROL SPENCE 04/29 Released w/o Limitations [facility] [place] [facility] [place] [id number] REGINA TERESA 05/06 Released w/o Limitations [facility] [place] [facility] [place] [id number] DON VALLE 05/12 Released w/o Limitations [facility] [place] [facility] [place] [id number] Follow up JOHANN DORADO CORBY 06/01 Released with Work/Duty Limitations [facility] [place] [facility] [place] [id number] FATMATA SOUSA 06/04 Released w/o Limitations [facility] [place] [facility] [place] M01A Cards[place] OUTPATIENT [id number] ankle pain TRUJILLOJUAN MANUEL MANZOCI 06/05 Released w/o Limitations [facility] [place] [facility] [place] [id number] TERRY CAVAZOS 06/09 Released with Work/Duty Limitations [facility] [place] [facility] [place] [id number] FATMATA SOUSA 06/12 Released w/o Limitations [facility] [place] [facility] [place] [id number] FATMATA SOUSA 06/16 Released w/o Limitations [facility] [place] [facility] [place] [id number] FATMATA SOUSA 06/18 Released w/o Limitations [facility] [place] [facility] [place] [id number] f/u YUDI HAZEL 06/18 Released w/o Limitations [facility] [place] [facility] [place] OUTPATIENT [id number] sleep issues JUAN BOWMAN 06/30 Released w/o Limitations [facility] [place] [facility] [place] [facility] [place] [id number] JOHANN DORADO CORBY 07/01 Released with Work/Duty Limitations [facility] [place] [facility] [place] [facility] [place] [id number] FATMATA SOUSA 07/09 Released w/o Limitations [facility] [place] [facility] [place] [facility] [place] [facility] [place] [id number] FATMATA SOUSA 07/12 Released w/o Limitations [facility] [place] [facility] [place] [facility] [place] [facility] [place] [id number] FATMATA OSUSA 07/14 Released w/o Limitations [facility] [place] [facility] [place] [facility] [place] [facility] [place] [id number] FATMATA SOUSA 07/19 Released w/o Limitations [facility] [place] [facility] [place] [facility] [place] [facility] [place] [id number] FATMATA SOUSA 07/26 Released w/o Limitations [facility] [place] [facility] [place] [facility] [place] [facility] [place] OUTPATIENT [id number] IMR/DD 2795/PH A/SAT/A NTHRAX/ VISION FLORENCIA MONTGOMERY 07/27 Released with Work/Duty Limitations [facility] [place] [facility] [place] [facility] [place] [facility] [place] Conserv[place] Exam[place] OUTPATIENT [id number] Annual Hearing test TAMERA SAPPAdriane 07/27 Released w/o Limitations [facility] [place] [facility] [place] [id number] FATMATA SOUSA 08/02 Released w/o Limitations [facility] [place] OUTPATIENT [id number] right shoulde r ANGI Russell 08/23 Released with Work/Duty Limitations [facility] [place]) OUTPATIENT [id number] SHOULDE R PAIN SEE09/03 Released w/o Limitations [facility] [place] OUTPATIENT [id number] FFD SEE09/27 Released w/o Limitations [place]) OUT[place]IENT [id number] f/u YUDI HAZEL 09/29 Released [place]/o Limitations [place] TELE CONSULT [id number] Notes Entered by: TERI LOPEZ 01 Oct 2011 0934 ------- ------- ------- ------- -- consult s TERI GARZA 09/30 Referred for Appointment [place]IENT [id number] IDES/ME B/FFD SELINA ANDRADE 10/06 Released with Work/Duty Limitations [facility] [place] [facility] [place] OUTPATIENT [id number] audiogr am ANILA JUSTICE 10/11 Released w/o Limitations [facility] [place] [facility] [place] [facility] [place] [id number] exam SHERRI STEWART 10/15 [facility]ased w/o Limitations [facility] [place] [facility] [place]) OUTPATIENT [id number] Shoulde r joint pain(ff d right shoulde r pain s/p surgery 2010) CAM[place] ALVARAOD 10/26 [facility]ased w/[facility] Limitations [facility] [place] [facility] [place]) OUTPATIENT [id number] IDES/ME B/SELINA SANCHEZ 11/23 Released with Work/Duty Limitations [facility] [place]) [facility] [place] OUTPATIENT [id number] WILLIE RIVERO 12/09 Immediate Referral [facility] [place] [facility] [place]) [facility]PATIENT [id number] shoulde r pain JUAN BOWMAN 12/09 [facility] [place] M01[place] [facility] [place] [facility] [facility] [place] OUTPATIENT [id number] MOB/DD2 795 W/PHA/S AT/FLU/ HIV MOSES VALLEJO 01/04 Released with Work/Duty Limitations [facility] [place] [facility] [place]) OUTPATIENT [id number] Nuno SALAZAR-CRISTIAN COLLINS 01/04 Released w/o Limitations [place] Conserv[place] Ex[place]) OUTPATIENT [id number] Predepl oyment Hearing Test TAMERA SAPPAdriane 01/04 [place]ased [place]itations [place] OUTPATIENT [id number] PPD F/U DEB JALLOH 01/06 [place]ased w/o Limitations [place] [id number] MALI ORTEGA 01/16 [place]ick at Home/Qu[place] TELE CONSULT [id number] Notes Entered by: LICO AYALA 12 May 2012 0644 ------- ------- ------- ------- -- Consult DEB CHANG 05/12 Referred [place] Appointment [place] [facility] Outpatient Encounter [id number] 1 12/16 [facility] Outpatient Encounter [id number] 03/01 [facility] OFFICE O/P EST MOD 30-39 MIN [id number] Diagnos is: ICD-10- CM Z72.0 Tobacco use<br/ > Eileen RIVAS ODD 03/02 [facility] Outpatient Encounter [id number] DURAN,DAVIDH Jeanne T 10/20 [facility] Procedures Combined list of: 1) Procedures from Department of Veterans Affairs facilities going back up to thelast 18 months, not all VA non-surgical procedures are included; 2) All procedures from the Department of Defense facilities. Procedure Procedure Type Code Date Perfomer Comments Sour e INFLUENZA VIRUS VACCINE, TRIVALENT, LIVE (LAIV3), FOR INTRANASAL USE 2005 [facility] INFLUENZA VIRUS VACCINE, TRIVALENT, LIVE (LAIV3), FOR INTRANASAL USE 2005 [facility] NONINVASIVE EAR OR PULSE OXIMETRY FOR OXYGEN SATURATION; SINGLE DETERMINATION 2005 DoD NONINVASIVE EAR OR PULSE OXIMETRY FOR OXYGEN SATURATION; SINGLE DETERMINATION 2005 DoD FITTING OF SPECTACLES, EXCEPT FOR APHAKIA; MONOFOCAL 2005 DoD ANALYSIS OF CLINICAL DATA STORED IN COMPUTERS (EG, ECGS, BLOOD PRESSURES, HEMATOLOGIC DATA) 2005 DoD HEALTH&BEHAV ASSESSMENT (EG, HEALTH-FOC CLINICAL INTERVIEW, BEHAVIORAL OBSERVATIONS, PSYCHOPHYSICOLOGICAL MONITOR, HEALTH-ORIENT QUESTIONNAIRES), EA 15 MIN [id number] W THE PATIENT; INIT ASSESSMENT 2010 DoD HEALTH&BEHAV ASSESSMENT (EG, HEALTH-FOC CLINICAL INTERVIEW, BEHAVIORAL OBSERVATIONS, PSYCHOPHYSICOLOGICAL MONITOR, HEALTH-ORIENT QUESTIONNAIRES), EA 15 MIN [id number] W THE PATIENT; INIT ASSESSMENT 2009 DoD SCREENING TEST OF VISUAL ACUITY, QUANTITATIVE, BILATERAL 2009 [facility]D HEALTH&BEHAV ASSESSMENT (EG, HEALTH-FOC CLINICAL INTERVIEW, BEHAVIORAL OBSERVATIONS, PSYCHOPHYSICOLOGICAL MONITOR, HEALTH-ORIENT QUESTIONNAIRES), EA 15 MIN [id number] W THE PATIENT; INIT ASSESSMENT 2008 [facility] SCREENING TEST OF VISUAL ACUITY, QUANTITATIVE, BILATERAL 2008 DoD FITTING OF SPECTACLES, EXCEPT FOR APHAKIA; MONOFOCAL 2008 DoD IMMUNIZATION ADMINISTRATION (INCLUDES PERCUTANEOUS, INTRADERMAL, SUBCUTANEOUS, OR INTRAMUSCULAR INJECTIONS); 1 VACCINE (SINGLE OR COMBINATION VACCINE/TOXOID) 2007 [facility] TYPHOID VACCINE, ACETONE-KILLED, DRIED (AKD), FOR SUBCUTANEOUS USE (U.S. ) 2007 [facility] UNLISTED THERAPEUTIC, PROPHYLACTIC OR DIAGNOSTIC INTRAVENOUS OR INTRA-ARTERIAL INJECTION OR INFUSION 2007 [facility] THERAPEUTIC PROCEDURE(S), GROUP (2 OR MORE INDIVIDUALS) 2007 [facility] THERAPEUTIC PROCEDURE(S), GROUP (2 OR MORE INDIVIDUALS) 2007 [facility] THERAPEUTIC PROCEDURE, 1 OR MORE AREAS, EACH 15 MINUTES; THERAPEUTIC EXERCISES TO DEVELOP STRENGTH AND ENDURANCE, RANGE OF MOTION AND FLEXIBILITY 2007 [facility] SKIN TEST; TUBERCULOSIS, INTRADERMAL 2007 [facility] BLOOD, OCCULT, BY PEROXIDASE ACTIVITY (EG, GUAIAC), QUALITATIVE, FECES, 1-3 SIMULT DETERM, PERF FOR OTH THAN COLOREC NEOPLASM SCREEN 2006 [facility] PURE TONE AUDIOMETRY (THRESHOLD); AIR ONLY 2006 [facility] INFLUENZA VIRUS VACCINE, TRIVALENT, LIVE (LAIV3), FOR INTRANASAL USE 2006 [facility] FITTING OF SPECTACLES, EXCEPT FOR APHAKIA; MONOFOCAL 2006 [facility] DISTORTION PRODUCT EVOKED OTOACOUS EMISSIONS;LIMITED EVALUATION (TO CONFIRM THE PRESENCE/ABSENCE OF HEARING DISORDER,3-6 FREQUENCIES)/TRANSIENT EVOKED OTOACOUS EMISSIONS,W INTERPRETATION &REPORT 2006 [facility] FLOW CYTOMETRY, CELL CYCLE OR DNA ANALYSIS 2006 [facility] IMMUNIZATION ADMINISTRATION (INCLUDES PERCUTANEOUS, INTRADERMAL, SUBCUTANEOUS, OR INTRAMUSCULAR INJECTIONS); 1 VACCINE (SINGLE OR COMBINATION VACCINE/TOXOID) 2005 [facility] AUDIOMETRIC TESTING OF GROUPS 2011 [facility] NEUROPSYCHOLOGICAL TESTING (EG, [place] CARD SORTING TEST), ADMINISTERED BY A COMPUTER, WITH QUALIFIED HEALTH BRICK WASHER INTERPRETATION AND REPORT 2011 [facility] SKIN TEST; TUBERCULOSIS, INTRADERMAL 2011 [facility] THERAPEUTIC, PROPHYLACTIC, OR DIAGNOSTIC INJECTION (SPECIFY SUBSTANCE OR DRUG); SUBCUTANEOUS OR INTRAMUSCULAR 2011 [facility] FITTING OF SPECTACLES, EXCEPT FOR APHAKIA; MONOFOCAL 2011 [facility] PSYCHIATRIC DIAGNOSTIC INTERVIEW EXAMINATION 2011 [facility] MANUAL THERAPY TECHNIQUES (EG, MOBILIZATION/ MANIPULATION, MANUAL LYMPHATIC DRAINAGE, MANUAL TRACTION), 1 OR MORE REGIONS, EACH 15 MINUTES 2011 [facility] INDIVIDUAL PSYCHOTHERAPY, INSIGHT ORIENTED, BEHAVIOR MODIFYING AND/OR SUPPORTIVE, IN AN OFFICE OR OUTPATIENT FACILITY, APPROXIMATELY 20 TO 30 MINUTES [id number] WITH THE PATIENT 2011 [facility] AUDIOMETRIC TESTING OF GROUPS 2011 [facility] MANUAL THERAPY TECHNIQUES (EG, MOBILIZATION/ MANIPULATION, MANUAL LYMPHATIC DRAINAGE, MANUAL TRACTION), 1 OR MORE REGIONS, EACH 15 MINUTES 2011 [facility] THERAPEUTIC PROCEDURE, 1 OR MORE AREAS, EACH 15 MINUTES; THERAPEUTIC EXERCISES TO DEVELOP STRENGTH AND ENDURANCE, RANGE OF MOTION AND FLEXIBILITY 2011 [facility] MANUAL THERAPY TECHNIQUES (EG, MOBILIZATION/ MANIPULATION, MANUAL LYMPHATIC DRAINAGE, MANUAL TRACTION), 1 OR MORE REGIONS, EACH 15 MINUTES 2011 [facility] APPLICATION OF A MODALITY TO 1 OR MORE AREAS; HOT OR COLD PACKS 2011 [facility] MANUAL THERAPY TECHNIQUES (EG, MOBILIZATION/ MANIPULATION, MANUAL LYMPHATIC DRAINAGE, MANUAL TRACTION), 1 OR MORE REGIONS, EACH 15 MINUTES 2011 [facility] PHYSICAL THERAPY RE-EVALUATION 2011 [facility] INDIVIDUAL PSYCHOTHERAPY, INSIGHT ORIENTED, BEHAVIOR MODIFYING AND/OR SUPPORTIVE, IN AN OFFICE OR OUTPATIENT FACILITY, APPROXIMATELY 20 TO 30 MINUTES [id number] WITH THE PATIENT 2011 [facility] APPLICATION OF A MODALITY TO 1 OR MORE AREAS; HOT OR COLD PACKS 2011 [facility] APPLICATION OF A MODALITY TO 1 OR MORE AREAS; HOT OR COLD PACKS 2011 [facility] THERAPEUTIC PROCEDURE, 1 OR MORE AREAS, EACH 15 MINUTES; THERAPEUTIC EXERCISES TO DEVELOP STRENGTH AND ENDURANCE, RANGE OF MOTION AND FLEXIBILITY 2011 [facility] THERAPEUTIC PROCEDURE, 1 OR MORE AREAS, EACH 15 MINUTES; THERAPEUTIC EXERCISES TO DEVELOP STRENGTH AND ENDURANCE, RANGE OF MOTION AND FLEXIBILITY 2011 [facility] THERAPEUTIC PROCEDURE, 1 OR MORE AREAS, EACH 15 MINUTES; THERAPEUTIC EXERCISES TO DEVELOP STRENGTH AND ENDURANCE, RANGE OF MOTION AND FLEXIBILITY 2011 [facility] SELF-CARE/HOME MANAGMENT TRAIN (EG,ACT OF DAILY LIVING (ADL) &COMPENSAT TRAIN,MEAL PREPARATION,SAFETY PROCS,AND INSTRUCT IN USE OF ASST TECHNOLOGY DEV/ADPT EQUIP) DIR ONE-ON-ONE CONT,EA 15 MINUTES 2011 [facility] THERAPEUTIC PROCEDURE, 1 OR MORE AREAS, EACH 15 MINUTES; THERAPEUTIC EXERCISES TO DEVELOP STRENGTH AND ENDURANCE, RANGE OF MOTION AND FLEXIBILITY 2011 [facility] APPLICATION OF A MODALITY TO 1 OR MORE AREAS; ELECTRICAL STIMULATION (UNATTENDED) 2010 [facility] APPLICATION OF A MODALITY TO 1 OR MORE AREAS; HOT OR COLD PACKS 2010 [facility] THERAPEUTIC PROCEDURE, 1 OR MORE AREAS, EACH 15 MINUTES; THERAPEUTIC EXERCISES TO DEVELOP STRENGTH AND ENDURANCE, RANGE OF MOTION AND FLEXIBILITY 2010 [facility] THERAPEUTIC PROCEDURE, 1 OR MORE AREAS, EACH 15 MINUTES; THERAPEUTIC EXERCISES TO DEVELOP STRENGTH AND ENDURANCE, RANGE OF MOTION AND FLEXIBILITY 2010 [facility] POSTOPERATIVE FOLLOW-UP VISIT, NORMALLY INCLUDED IN THE SURGICAL PACKAGE, INDICATE THAT EVALUATION & MANAGEMENT SERVICE WAS PERFORMED DURING A POSTOPERATIVE PERIOD REASON RELATED ORIGINAL PROCEDURE 2010 [facility] POSTOPERATIVE FOLLOW-UP VISIT, NORMALLY INCLUDED IN THE SURGICAL PACKAGE, INDICATE THAT EVALUATION & MANAGEMENT SERVICE WAS PERFORMED DURING A POSTOPERATIVE PERIOD REASON RELATED ORIGINAL PROCEDURE 2010 [facility] THERAPEUTIC PROCEDURE, 1 OR MORE AREAS, EACH 15 MINUTES; THERAPEUTIC EXERCISES TO DEVELOP STRENGTH AND ENDURANCE, RANGE OF MOTION AND FLEXIBILITY 2010 [facility] THERAPEUTIC, PROPHYLACTIC, OR DIAGNOSTIC INJECTION (SPECIFY SUBSTANCE OR DRUG); SUBCUTANEOUS OR INTRAMUSCULAR 2010 [facility] UNLISTED SPECIAL SERVICE, PROCEDURE OR REPORT 2010 [facility] THERAPEUTIC PROCEDURE, 1 OR MORE AREAS, EACH 15 MINUTES; THERAPEUTIC EXERCISES TO DEVELOP STRENGTH AND ENDURANCE, RANGE OF MOTION AND FLEXIBILITY 2010 [facility] THERAPEUTIC PROCEDURE, 1 OR MORE AREAS, EACH 15 MINUTES; THERAPEUTIC EXERCISES TO DEVELOP STRENGTH AND ENDURANCE, RANGE OF MOTION AND FLEXIBILITY 2010 [facility] ANKLE FOOT ORTHOSIS, MULTILIGAMENTOUS ANKLE SUPPORT, PREFABRICATED, [id number] 2010 [facility] PHYSICAL THERAPY EVALUATION 2010 [facility] POSTOPERATIVE FOLLOW-UP VISIT, NORMALLY INCLUDED IN THE SURGICAL PACKAGE, INDICATE THAT EVALUATION & MANAGEMENT SERVICE WAS PERFORMED DURING A POSTOPERATIVE PERIOD REASON RELATED ORIGINAL PROCEDURE 2010 [facility] SIMPLE REPAIR OF SUPERFICIAL WOUNDS OF FACE, EARS, EYELIDS, NOSE, LIPS AND/OR MUCOUS MEMBRANES; 2.6 CM TO 5.0 CM 2010 [facility] ANTIBODY; VARICELLA-ZOSTER 2010 [facility] Physical Therapy: ___ Se ion Segments, 15 Minutes Each Physical Therapy: ___ Session Segments, 15 Minutes Each 73538 2007 JORGE AYALA [facility] Phys Therapy Education Self Care Training - Per 15 Minutes Phys Therapy Education Self Care Training - Per 15 Minutes 69376 2007 JORGE AYALA [facility] Physical Therapy Service Evaluation Physical Therapy Service Evaluation 95623 2007 JORGE AYALA [facility] Skin Test Anergy tuberculin Skin Test Anergy tuberculin 42927 2007 DANNY BLAIR [facility] A e ment Of Tobacco Use Assessment Of Tobacco Use 1000F 2006 MANJU MORGAN [facility] ECG 12-Lead ECG 12-Lead 71066 2006 MORGANMANJU Lilly [facility] CXR Posteroanterior And Lateral Views CXR Posteroanterior And Lateral Views 61376 2006 MORGANMANJU Lilly [facility] Fecal Analysis - Occult Blood From Digital Rectal Exam 2006 MORGANMANJU Lilly Blood occult test (e.g., guaiac), feces, for single determination for colorectal neoplasm (i.e., patient was provided three cards or single triple card for consecutive collection) 2006 MANJU MORGAN Skin Test Anergy Tuberculin Intradermal Skin Test Anergy Tuberculin Intradermal 64091 2006 MORGANMANJU Lilly Visual Function Screening Visual Function Screening 81927 2006 MORGANMANJU Lilly Threshold Audiogram (Pure Tone) Threshold Audiogram (Pure Tone) 79612 2006 MANJU MORGAN Influenza Virus Vaccine Intranasal Live Attenuated 2006 FÁTIMA FAY Ophthalmological New Patient Start Comprehensive Care Ophthalmological New Patient Start Comprehensive Care 77341 2006 DAVON TRIVEDI Spectacles Services Fitting Monofocal Except For Aphakia [employer]acles Services Fitting Monofocal Except For Aphakia 57787 2006 DAVON TRIVEDI Determination Of Refractive State Determination Of Refractive State 13599 2006 DAVON TRIVEDI Acoustic Reflex Testing 2006 ARNALDO LEVINE Evoked Otoacoustic Naa ions Limited 2006 ARNALDO LEVINE Comprehensive Audiometry Comprehensive Audiometry 06748 2006 ARNALDO LEVINE Tympanometry Tympanometry 28730 2006 ARNALDO LEVINE Flow Cytometry DNA Analysis Flow Cytometry DNA Analysis 52861 2006 ELISA MAGAÑA Serum Cortisol - Morning Sample Serum Cortisol - Morning Sample 33588 2006 ELISA MAGAÑA Basic Metabolic Panel With Total Calcium 2006 ELISA MAGAÑA Serum Enzyme Immunoa ay Lipoprotein-A oc Phospholipase A2 2006 ELISA MAGAÑA CBC With Differential CBC With Differential 74154 2006 ELISA MAGAÑA Venipuncture Venipuncture 45971 2006 ELISA MAGAÑA Immunization Administration By Injection, One Vaccine Immunization Administration By Injection, One Vaccine 77429 2005 KEMI VILLANUEVA [facility] Hepatitis B Vaccine (Active) Adult Dosage 2005 KEMI VILLANUEVA [facility] Venipuncture Venipuncture 54965 2005 KEMI VILLANUEVA [facility] Immunization Admin By Intranasal / Oral Route One Vaccine Immunization Admin By Intranasal / Oral Route One Vaccine 90609 2005 MARKY BLUE Influenza Virus Vaccine Intranasal Live Attenuated 2005 MARKY BLUE [facility] Hepatitis A Vaccine Adult Dosage (Intramuscular Use) Hepatitis A Vaccine Adult Dosage (Intramuscular Use) 73878 2005 BAYLEE HAWLEY Influenza Virus Vaccine Intranasal Live Attenuated 2005 BAYLEE HAWLEY Immunization Administration By Injection, One Vaccine Immunization Administration By Injection, One Vaccine 83351 2005 BAYLEE HAWLEY Immunization Admin By Intranasal / Oral Route One Vaccine Immunization Admin By Intranasal / Oral Route One Vaccine 66157 2005 BAYLEE HAWLEY Determination Of Refractive State Determination Of Refractive State 45809 2005 JONAH MENDOZA [facility] Screening Test Of Visual Acuity, Quantitative, Bilateral Screening Test Of Visual Acuity, Quantitative, Bilateral 14792 2005 JONAH MENDOZA [employer] Fitting Monofocal Except For Aphakia [employer]acles Services Fitting Monofocal Except For Aphakia 98651 2005 JONAH MENDOZA Audiometry Group Testing Audiometry Group Testing 68982 2011 TAMERA SAPP [facility] Psychometric Neuropsych Testing Battery Admin By Computer Psychometric Neuropsych Testing Battery Admin By Computer 64812 2011 CRISTIAN DAVE [facility] Skin Test Anergy Tuberculin Intradermal Skin Test Anergy Tuberculin Intradermal 38064 2011 MOSES VALLEJO Comprehensive Audiometry Automated Comprehensive Audiometry Automated 0212T 2011 MOSES VALLEJO Influenza Virus Vaccine Intranasal Live Attenuated 2011 MOSES VALLEJO Serum Viral Antibody HIV-1 And HIV-2 (Single Result) Serum Viral Antibody HIV-1 And HIV-2 (Single Result) 65052 2011 MOSES VALLEJO Physician Supervised Injection Intramuscular Physician Supervised Injection Intramuscular 08576 2011 JUAN BOWMAN [facility] Spectacles Services Fitting Monofocal Except For Aphakia Spectacles Services Fitting Monofocal Except For Aphakia 08953 2011 SHERRI STEWART Ophthalmological Prior Patient Start Comprehensive Care Ophthalmological Prior Patient Start Comprehensive Care 88406 2011 SHERRI STEWART Determination Of Refractive State Determination Of Refractive State 10186 2011 SHERRI STEWART Ophthalmological New Patient Start Comprehensive Care Ophthalmological New Patient Start Comprehensive Care 39773 2011 SHERRI STEWART Psychiatric Diagnostic Evaluation Review of Records and Reports Psychiatric Diagnostic Evaluation Review of Records and Reports 57157 2011 SAI ANNA -30 minutes. [facility] Psychiatric Diagnostic Evaluation Comprehensive Examination Psychiatric Diagnostic Evaluation Comprehensive Examination 51025 2011 SAI ANNA Physical Therapy Mobilization Joint Physical Therapy Mobilization Joint 28803 2011 FATMATA SOUSA isted Exercises For ROM Assisted Exercises For ROM 02168 2011 FATMATA SOUSA [employer]ometry [employer] Testing Audiometry Group Testing 98003 2011 TAMERA SAPP Clinical Social Work Individual Outpatient Counseling 30 Minutes Clinical Social Work Individual Outpatient Counseling 30 Minutes 26990 2011 ESPERANZA HARRISON Clinical Water Supervisor [facility] Anthrax Vaccine, For Subcutaneous Use 2011 [place] Immunization Administration By Injection, One Vaccine Immunization Administration By Injection, One Vaccine 31607 2011 [place] Screening Test Of Visual Acuity, Quantitative, Bilateral Screening Test Of Visual Acuity, Quantitative, Bilateral 53259 2011 FLORENC[place] [facility] Health Maint. Unlisted Preventive Medicine Service Health Maint. Unlisted Preventive Medicine Service 94088 2011 [place] Physical Therapy Mobilization Joint Physical Therapy Mobilization Joint 45240 2011 FATMATA SOUSA isted Exercises For ROM Assisted Exercises For ROM 85678 2011 FATMATA SOUSA Physical Therapy Mobilization Joint Physical Therapy Mobilization Joint 53006 2011 MERRY, FATMATA M DoD A isted Exercises For ROM Assisted Exercises For ROM 94378 2011 FATMATA SOUSA Physical Therapy Mobilization Joint Physical Therapy Mobilization Joint 13930 2011 FATMATA SOUSA A isted Exercises For ROM Assisted Exercises For ROM 80789 2011 FATMATA SOUSA Modalities Cryotherapy Cold Packs Modalities Cryotherapy Cold Packs 01268 2011 FATMATA SOUSA Physical Therapy Mobilization Joint Physical Therapy Mobilization Joint 41304 2011 FATMATA SOUSA A isted Exercises For ROM Assisted Exercises For ROM 77070 2011 FATMATA SOUSA Physical Therapy Mobilization Joint Physical Therapy Mobilization Joint 80987 2011 FATMATA SOUSA Modalities Cryotherapy Cold Packs Modalities Cryotherapy Cold Packs 26454 2011 FATMATA SOUSA A isted Exercises For ROM Assisted [place]ises [place] 46094 2011 FATMATA SOUSA [facility] Physical Therapy Service Re-Evaluation Physical Therapy Service Re-Evaluation 80619 2011 JOHANN DORADO [facility] Clinical Social Work Individual Outpatient Counseling 30 Minutes Clinical Social Work Individual Outpatient Counseling 30 Minutes 72093 2011 PHILLIP NESBITT - CLINICAL SOCIAL WORK [facility] Modalities Cryotherapy Cold Packs Modalities Cryotherapy Cold Packs 27735 2011 FATMATA SOUSA Modalities Electrical Stimulation Unattended Modalities Electrical Stimulation Unattended 94984 2011 FATMATA SOUSA Mobilization Soft Ti ue Mobilization Soft Tissue 60449 2011 FATMATA SOUSA [facility] Physical Therapy: ___ Se ion Segments, 15 Minutes Each Physical Therapy: ___ Session Segments, 15 Minutes Each 94750 2011 FATMATA SOUSA Modalities Cryotherapy Cold Packs Modalities Cryotherapy Cold Packs 19141 2011 FATMATA SOUSA [facility] Modalities Electrical Stimulation Unattended Modalities Electrical Stimulation Unattended 27142 2011 FATMATA SOUSA Mobilization Soft Ti ue Mobilization Soft Tissue 22692 2011 FATMATA SOUSA [facility] Physical Therapy: ___ Se ion Segments, 15 Minutes Each Physical Therapy: ___ Session Segments, 15 Minutes Each 46656 2011 FATMATA SOUSA Modalities Cryotherapy Cold Packs Modalities Cryotherapy Cold Packs 05653 2011 FATMATA SOUSA Modalities Electrical Stimulation Unattended Modalities Electrical Stimulation Unattended 34976 2011 FATMATA SOUSA Mobilization Soft Ti ue Mobilization Soft Tissue 11539 2011 FATMATA SOUSA Physical Therapy: ___ Se ion Segments, 15 Minutes Each Physical Therapy: ___ Session Segments, 15 Minutes Each 14927 2011 FATMATA SOUSA A isted Exercises For ROM Assisted Exercises For ROM 71440 2011 TERRY CAVAZOS Physical Therapy: ___ Se ion Segments, 15 Minutes Each Physical Therapy: ___ Session Segments, 15 Minutes Each 42672 2011 TERRY CAVAZOS A isted Exercises For ROM Assisted Exercises For ROM 43885 2011 FATMATA SOUSA Physical Therapy: ___ Se ion Segments, 15 Minutes Each Physical Therapy: ___ Session Segments, 15 Minutes Each 06395 2011 FATMATA SOUSA Phys Therapy Education Self Care Training - Per 15 Minutes Phys Therapy Education Self Care Training - Per 15 Minutes 70306 2011 JOHANN DORADO Physical Therapy Service Re-Evaluation Physical Therapy Service Re-Evaluation 68504 2011 JOHANN DORADO Physical Therapy: ___ Se ion Segments, 15 Minutes Each Physical Therapy: ___ Session Segments, 15 Minutes Each 84844 2011 DON VALLE Modalities Electrical Stimulation Unattended Modalities Electrical Stimulation Unattended 86537 2010 REGINA TERESA Physical Therapy: ___ Se ion Segments, 15 Minutes Each Physical Therapy: ___ Session Segments, 15 Minutes Each 80154 2010 REGINA TERESA Physical Therapy: ___ Se ion Segments, 15 Minutes Each Physical Therapy: ___ Session Segments, 15 Minutes Each 67885 2010 CAROL SPENCE Modalities Electrical Stimulation Unattended Modalities Electrical Stimulation Unattended 83573 2010 CAROL SPENCE [facility] Modalities Cryotherapy Cold Packs Modalities Cryotherapy Cold Packs 24703 2010 CAROL SPENCE [facility] Modalities Cryotherapy Cold Packs Modalities Cryotherapy Cold Packs 04377 2010 MANUEL NEGRO [facility] Modalities Electrical Stimulation Unattended Modalities Electrical Stimulation Unattended 73130 2010 MANUEL NEGRO [facility] Physical Therapy: ___ Se ion Segments, 15 Minutes Each Physical Therapy: ___ Session Segments, 15 Minutes Each 71096 2010 MANUEL NEGRO [facility] Physical Therapy: ___ Se ion Segments, 15 Minutes Each Physical Therapy: ___ Session Segments, 15 Minutes Each 10049 2010 JOHANN DORADO [facility] Physical Therapy Service Evaluation Physical Therapy Service Evaluation 53593 2010 JOHANN DORADO [facility] Postoperative Visit, Without Charge Postoperative Visit, Without Charge 24801 2010 YUDI HAZEL Postoperative Visit, Without Charge Postoperative Visit, Without Charge 58366 2010 YUDI HAZEL Physical Therapy: ___ Se ion Segments, 15 Minutes Each Physical Therapy: ___ Session Segments, 15 Minutes Each 30173 2010 JOHANN DORADO [facility] Physical Therapy Service Re-Evaluation Physical Therapy Service Re-Evaluation 97205 2010 JOHANN DORADO [facility] Physical Therapy: ___ Se ion Segments, 15 Minutes Each Physical Therapy: ___ Session Segments, 15 Minutes Each 53533 2010 MANUEL NEGRO [facility] Physical Therapy: ___ Se ion Segments, 15 Minutes Each Physical Therapy: ___ Session Segments, 15 Minutes Each 13690 2010 JOHANN DORADO [facility] Physical Therapy Service Evaluation Physical Therapy Service Evaluation 39159 2010 JOHANN DORADO [facility] Ankle foot orthosis, multiligamentous ankle support, prefabricated, [id number] 2010 SELAM DE LA ROSA [facility] Physical Therapy Education Orthotics Training Initial 15 Min 2010 SELAM DE LA ROSA 8 minute patient fit and train. Patient tolerated procedure well initially. [facility] Physical Therapy: ___ Se ion Segments, 15 Minutes Each Physical Therapy: ___ Session Segments, 15 Minutes Each 84145 2010 JOHANN DORADO [facility] Physical Therapy Service Evaluation Physical Therapy Service Evaluation 72358 2010 ESTRADA JOHANNMINDA TAVAREZ [facility] Influenza Split Virus Vaccine 0.5mL Dosage Intramuscular 2010 FLORENCIA MONTGOMERY [facility] Immunization Administration By Injection, One Vaccine Immunization Administration By Injection, One Vaccine 60169 2010 FLORENCIA MON[place]OM[place] [facility] Serum Viral Antibody Titer Varicella-Zoster Serum Viral Antibody Titer Varicella-Zoster 80019 2010 DEBI MONTGOMERYPH Reyna [facility] Health Maint. Unlisted Preventive Medicine Service Health Maint. Unlisted Preventive Medicine Service 25671 2010 FLORENCIA MONTGOMERY [facility] Anthrax Vaccine, For Subcutaneous Use 2010 VANCE DAVIS Using sterile technique skin site cleansed with a suitable germicide and site dry prior to vaccination. SM was injected with 0.5mL of (Anthrax Vaccine Adsorbed) intramuscular . SM was screened for severe reaction to previous dosing of this vaccine. SM was screened for possible latex sensitivity and if female a Hcg ( test was reviewed). [facility] Skin Test Anergy Tuberculin Intradermal Skin Test Anergy Tuberculin Intradermal 27041 2010 VANCE DAVIS Using sterile technique kin site cleansed with a suitable germicide and site dry prior to vaccination. SM was injected with 0.1mL of (Tuberculin Purified Protein Derivative) intra-dermal. SM was screened for severe reaction to previous dosing of this vaccine. SM was screened sever reaction to previous PPD, history of TB or treatment for TB and extensive barnard or eczema. [facility] Health And Behav A e mt Each 15 Min Initial A e ment Health And Behav Assessmt Each 15 Min Initial Assessment 54803 2010 ADEN FELIX [facility] Health And Behav A e mt Each 15 Min Initial A e ment Health And Behav Assessmt Each 15 Min Initial Assessment 61016 2009 RONALD ROSE [facility] Threshold Audiogram (Pure Tone) Threshold Audiogram (Pure Tone) 56111 2009 WILMER BAXTER [facility] Screening Test Of Visual Acuity, Quantitative, Bilateral Screening Test Of Visual Acuity, Quantitative, Bilateral 32427 2009 WILMER BAXTER [facility] Health And Behav A e mt Each 15 Min Initial A e ment Health And Behav Assessmt Each 15 Min Initial Assessment 23642 2008 SANGEETA NEGRON [facility] Venipuncture Venipuncture 34117 2008 PETE BHATTI [facility] Screening Test Of Visual Acuity, Quantitative, Bilateral Screening Test Of Visual Acuity, Quantitative, Bilateral 69541 2008 PETE BHATTI [facility] Spectacles Services Fitting Monofocal Except For Aphakia Spectacles Services Fitting Monofocal Except For Aphakia 57495 2008 SIOMARA STRATTON [facility] Determination Of Refractive State Determination Of Refractive State 24773 2008 SIOMARA STRATTON [facility] Ophthalmological Prior Patient Start Comprehensive Care Ophthalmological Prior Patient Start Comprehensive Care 49948 2008 SIOMARA STRATTON [facility] Typhoid Vaccine Acetone-Killed, Dried (U.S. ) Typhoid Vaccine Acetone-Killed, Dried (U.S. ) 92629 2007 EROS WITT [facility] Immunization Administration By Injection, Each Additional Vaccine Immunization Administration By Injection, Each Additional Vaccine 56116 2007 EROS WITT [facility] Anthrax Vaccine, For Subcutaneous Use Anthrax Vaccine, For Subcutaneous Use 00546 2007 EROS WITT [facility] Immunization Administration By Injection, One Vaccine Immunization Administration By Injection, One Vaccine 89349 2007 EROS WITT [facility] Serum Viral Antibody HIV-1 And HIV-2 (Single Result) Serum Viral Antibody HIV-1 And HIV-2 (Single Result) 56937 2007 EROS WITT [facility] Immunization Administration By Injection, One Vaccine Immunization Administration By Injection, One Vaccine 96314 2007 MERI FARIAS [facility] Physician Supervised Injection Physician Supervised Injection 49225 2007 FÁTIMA FAY [facility] Physical Medicine - Group Physical Therapy Se ion Physical Medicine - Group Physical Therapy Session 86842 2007 NAVIN DAVENPORT [facility] Physical Medicine - Group Physical Therapy Se ion Physical Medicine - Group Physical Therapy Session 04001 2007 JORGE AYALA [facility] Social History Combined list of available smoking, tobacco, and other social history from Department of Defense and Veterans Affairs facilities. 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 DoD Plan of Care List of future care activities from Department of Veterans Affairs facilities. Additional future care activities may be listed in the Assessment and Plan section. Date/Time Care Activity Care Activity Detail Facili ty 05/09/2024 AMBULATORY - MEDICINE AMBULATORY - MEDICI [facility] Advance Directives List of completed, amended, or rescinded Advance Directives on record at Department of Veterans Affairs facilities. An actual copy of the Directive is not included. Date Advance Directive Provider Source 02/04/2015 ADVANCE DIRECTIVE DISCUSSION LANDON MAC [facility] 01/28/2015 ADVANCE DIRECTIVE DISCUSSION [facility]
--- OUTSIDE RECORDS SUMMARY | 2024-05-07 03:07 | XMS_ITS | Encounter Summary ---
Author Organization [facility] Address [address] [place] [address] Care Team Providers Care Cyber Special Agent Name Role Phone Unavailable Primary Care Provider Unavailabl e Reason for Visit * Reason Comments SUICIDAL brought in by Awilda Marques Encounter Details Date Type Department Care Team (Late st Contact Info) Description 01/27/2015 11:54 AM CDT - 01/27/2015 6:40 PM CDT Emergency ER at [address] [id number] Lisa Lo MD [address] [place] [address] [id number] Suicidal ideation Discharge Disposition: Psychiatric Hospital or [...] PM CDT I spoke with Chris at [facility] who states Dr. Lira accepted pt , states doc-to-doc not requested * Chris Betancourt - 01/27/2015 4:50 PM CDT I spoke with Chris Perez, who states pt has been approved for transfer and received fax from [facility] that pt is seeking voluntary admission. I spoke with Emeli, [facility] ED and gave admission information * Chris Betancourt - 01/27/2015 3:14 PM CDT Jose received call from Bianka with [facility] who requested that documentation be faxed to her indicating pt is willing to seek voluntary admission , I spoke with Oma at [facility] ED to inform of this * Chris Betancourt - 01/27/2015 2:50 PM CDT I spoke with Jenni at [facility] at [phone] who states they don't have psych inpt services , however asked if pt is seeking help on a voluntary basis as Chris Nune[facility] has bed availability,I spoke with Oma at [facility] ED who states pt is voluntary status, Jenni requested that I contact Chris Nunez at [phone] and ask for charge nurse in ED , I spoke with Bianka Charge Nurse, who requested clinical information be sent , information was faxed to [phone] * Chris Betancourt - 01/27/2015 1:10 PM CDT Emeli [facility] ED called , states Dr. Lo is recommending psych admission of pt . * Chris Betancourt - 01/27/2015 12:45 PM CDT Received fax from [facility] at [phone] consult to [facility] documented in this encounter ED Notes * Linn Johnson RN - 01/27/2015 6:25 PM CDT [facility] here. Report given. Care turned [...] 5:02 PM CDT [facility] [place] [place] notified [phone] for transportation to [facility]. Will make arrangements for ambulance to tack picker patient. * Linn Johnson RN - 01/27/2015 5:00 PM CDT Supper tray served. Less anxious. Sitter at bedside. * Linn Johnson RN - 01/27/2015 4:58 PM CDT Report called to Chris at [facility]. Okay to send patient. * Linn Johnson RN - 01/27/2015 4:50 PM CDT Received call from Chris with . Information received to call Chris at [facility] ER to given report at [phone]. * Linn Johnson RN - 01/27/2015 4:33 PM CDT Chris with [facility] notified that patient is willing to go to [facility] and has signed note that he is willing to go. Also informed that information has been faxed to Bianka with [facility] at [phone]. * Linn Johnson RN - 01/27/2015 4:30 PM CDT Signed note for voluntary admission to [facility] faxed to [phone]. * Linn Johnson RN - 01/27/2015 4:24 PM CDT Patient agrees to go voluntary to [facility] in [place], [place]. Voluntary written note signed by patient and witnessed by this nurse received and placed on chart. * Linn Johnson RN - 01/27/2015 3:55 PM CDT Spoke with patient lengthy regarding admission to [facility]. Unsure if wants to go to [facility]. Requesting to go home. Informed unable [...] it said [facility],will call [facility] for placement * Linn Johnson RN - 01/27/2015 2:15 PM CDT Sitter at bedside. Cooperative. * Linn Johnson RN - 01/27/2015 1:00 PM CDT [facility] notified at [phone]. Spoke with Chris. Notes read to Chris. [...] No respiratory distress. Wringing hands together constantly. Art Therapist perative. Voiced willing to sign self in [...] bedroom. The girlfriend called 911. When the sheriff's sergeant got there pt was sitting on the [...] the patient: 01/27/2015 12:03 Miguel Ángel Nunez [id number] [facility] History Chief Complaint Patient presents [...] 40.0-75.0 % Lymph 19.2 (L) 19.3-53.1 % Teller 6.4 4.7-12.5 % Eos 0.9 0.7-7.0 % Baso 0.2 0.1-1.2 % Immature Grans 0.3 0-0.5 % Neutro Abs 7.26 (H) 1.56-6.13 x10^9/L Lymph Abs 1.91 1.18-3.74 x10^9/L Teller Abs 0.64 0.24-0.86 x10^9/L Eosin Abs 0.09 [...] Negative Negative Ketone UA Negative Negative Specific [place] UA <=1.005 1.005-1.030 pH UA 6.5 5.0-8.0 [...] 1444 possible placement and [facility] in [place]. The patient has remained cooperative. In no [...] URINE SCREEN 10 (01/27/2015 1:12 PM CDT) [facility] Amphetamines Screen Urine Negative Negative 01/27/2015 1:33 PM CDT [facility] Barbiturates Screen Urine Negative Negative 01/27/2015 1:33 PM CDT [facility] Benzodiazepines Screen Urine Negative Negative 01/27/2015 1:33 PM CDT [facility] Cannabinoids Screen Urine Negative Negative 01/27/2015 1:33 PM CDT [facility] Cocaine Screen Urine Negative Negative 01/27/2015 1:33 PM CDT [facility] Methadone Screen Urine Negative Negative 01/27/2015 1:33 PM CDT [facility] Opiate Screen Urine Negative Negative 01/27/2015 1:33 PM CDT [facility] Phencyclidine Screen Urine Negative Negative 01/27/2015 1:33 PM CDT [facility] Tricyclics Screen Urine Negative Negative 01/27/2015 1:33 PM CDT [facility] Methamphetamine Screen Urine Negative Negative 01/27/2015 1:33 PM CDT [facility] Urine URINE / Unknown 01/27/2015 1 :12 PM CDT 01/27/2015 1:17 PM CDT Narrative [facility] - 01/27/2015 1:33 PM CDT [...] URINE CHEMISTR Y ORDERABLES Performing Organization Address [facility]/ZIP Co de Phone Number [facility] [address] * URINALYSIS ROUTINE W/REFLEX TO CULTURE (01/27/2015 1:12 PM CDT) Color UA Yellow 01/27/2015 1:22 PM CDT [facility] Clarity UA Clear 01/27/2015 1:22 PM CDT [facility] Glucose UA Negative Negative 01/27/2015 1:22 PM CDT [facility] Bilirubin UA Negative Negative 01/27/2015 1:22 PM CDT [facility] Ketone UA Negative Negative 01/27/2015 1:22 PM CDT [facility] Specific [place] UA <=1.005 1.005 - 1.030 01/27/2015 1:22 PM CDT [facility] pH UA 6.5 5.0 - 8.0 pH 01/27/2015 1:22 PM CDT [facility] Protein UA Negative Negative 01/27/2015 1:22 PM CDT [facility] Urobilinogen UA 0.2 0.2 - 1.0 EU/dL 01/27/2015 1:22 PM CDT [facility] Nitrite UA Negative Negative 01/27/2015 1:22 PM CDT [facility] Blood UA Negative Negative 01/27/2015 1:22 PM CDT [facility] Leukocyte UA Negative Negative 01/27/2015 1:22 PM CDT [facility] Urine Microscopy Urine microscopy not indicated 01/27/2015 1:22 PM CDT [facility] Reflex Status Culture not indicated 01/27/2015 1:22 PM CDT [facility] Urine URINE SPECIMEN OBTAINED BY CLEAN CATCH PROCEDURE / Unknown 01/27/2015 1:12 PM CDT 01/27/2015 1:17 PM CDT Lisa Lo MD LAB - URINALYSIS ORD ERABLES Performing Organization Address [facility] Co de Phone Number [facility] [address] * TSH (01/27/2015 12:08 PM CDT) TSH 0.661 0.35 - 4.94 uIU/mL 01/27/2015 12:56 PM CDT [facility] Blood BLOOD SPECIMEN / Unknown Lab Venipuncture / Unknown 01/27/2015 12:08 PM CDT 01/27/2015 12:11 PM CDT Lisa Lo MD LAB - CHEMISTRY LATOYA PONCE Performing Organization Address [facility] Co de Phone Number [facility] [address] * (ABNORMAL) ACETAMINOPHEN LEVEL (01/27/2015 12:08 PM CDT) Acetaminophen <0.6(L) 10.0 - 30.0 ug/mL 01/27/2015 12:41 PM CDT [facility] Blood BLOOD SPECIMEN / Unknown Lab Venipuncture / Unknown 01/27/2015 12:08 PM CDT 01/27/2015 12:11 PM CDT Lisa Lo MD LAB - CHEMISTRY LATOYA PONCE Performing Organization Address [facility] Co de Phone Number [facility] [address] [place] [address] * (ABNORMAL) SALICYLATE LEVEL BLOOD (01/27/2015 12:08 PM CDT) Salicylate <5.0(L) 15.0 - 30.0 mg/dL 01/27/2015 12:41 PM CDT [facility] Blood BLOOD SPECIMEN / Unknown Lab Venipuncture / Unknown 01/27/2015 12:08 PM CDT 01/27/2015 12:11 PM CDT Lisa Lo MD LAB - CHEMISTRY LATOYA PONCE Performing Organization Address [facility] Co de Phone Number [facility] [address] [place] [address] * ALCOHOL ETHYL BLOOD (01/27/2015 12:08 PM CDT) Ethanol <10.0 <10 mg/dL 01/27/2015 12:39 PM CDT [facility] Blood BLOOD SPECIMEN / Unknown Lab Venipuncture / Unknown 01/27/2015 12:08 PM CDT 01/27/2015 12:11 PM CDT Narrative [facility] - 01/27/2015 12:39 PM CDT For Medical Use Only Lisa Lo MD LAB - CHEMISTRY LATOYA PONCE [facility] Organization Address City/State/ZIP Co de Phone Number [facility] [address] [place], [place] [id number] [place] [address] * COMPREHENSIVE METABOLIC PANEL (01/27/2015 12:08 PM CDT) Glucose 94 70 - 125 mg/dL 01/27/2015 12:39 PM CDT [facility] Sodium 137 136 - 145 mmol/L 01/27/2015 12:39 PM CDT [facility] Potassium 4.5 3.4 - 4.5 mmol/L 01/27/2015 12:39 PM CDT [facility] Chloride 105 98 - 107 mmol/L 01/27/2015 12:39 PM CDT [facility] CO2 23 22 - 29 mmol/L 01/27/2015 12:39 PM T [facility] Calcium 9.7 8.4 - 10.2 mg/dL 01/27/2015 12:39 PM T [facility] Anion Gap 14 10 - 20 mmol/L 01/27/2015 12:39 PM CDT [facility] BUN 11.6 8.4 - 25.7 mg/dL 01/27/2015 12:39 PM CDT [facility] Creatinine 1.08 0.72 - 1.25 mg/dL 01/27/2015 12:39 PM CDT [facility] eGFR by MDRD >60 >60 mL/min/1.7 3m2 01/27/2015 12:39 PM T [facility] eGFR by MDRD >60 >60 mL/min/1.7 3m2 01/27/2015 12:39 PM CDT [facility] Alkaline Phosphatase 99 40 - 150 U/L 01/27/2015 12:39 PM CDT [facility] ALT 18 5 - 55 U/L 01/27/2015 12:39 PM CDT [facility] AST 23 5 - 34 U/L 01/27/2015 12:39 PM CDT [facility] Protein Total 7.5 6.4 - 8.3 gm/dL 01/27/2015 12:39 PM T [facility] Albumin 4.0 3.5 - 5.0 gm/dL 01/27/2015 12:39 PM T [facility] Globulin Total 3.5 2.6 - 4.0 gm/dL 01/27/2015 12:39 PM CDT [facility] Albumin/Globulin Ratio 1.1 0.9 - 1.6 01/27/2015 12:39 PM CDT [facility] Bilirubin Total 0.5 0.2 - 1.2 mg/dL 01/27/2015 12:39 PM CDT [facility] Blood BLOOD SPECIMEN / Unknown Lab Venipuncture / Unknown 01/27/2015 12:08 PM CDT 01/27/2015 12:11 PM CDT Lisa Lo MD LAB - CHEMISTRY LATOYA PONCE [facility] Organization Address City/State/[facility] Co de Phone Number [facility] [address] * (ABNORMAL) CBC W AUTO DIFFERENTIAL (01/27/2015 12:08 PM CDT) WBC 10.0 4.0 - 10.0 x10^9/L 01/27/2015 12:15 PM CDT [facility] RBC 5.55 4.40 - 6.10 x10^12/L 01/27/2015 12:15 PM CDT [facility] Hemoglobin 18.1(H) 13.7 - 17.5 gm/dL 01/27/2015 12:15 PM CDT [facility] Hematocrit 50.7 40.1 - 51.0 % 01/27/2015 12:15 PM CDT [facility] MCV 91.4 78.0 - 100.0 fl 01/27/2015 12:15 PM CDT [facility] MCH 32.6 25.6 - 34.0 pg 01/27/2015 12:15 PM CDT [facility] MCHC 35.7 32.3 - 36.5 gm/dL 01/27/2015 12:15 PM CDT [facility] RDW 12.8 11.6 - 14.4 % 01/27/2015 12:15 PM CDT [facility] MPV 10.1 9.4 - 12.4 fl 01/27/2015 12:15 PM CDT [facility] Platelet Count 224 163 - 369 x10^9/L 01/27/2015 12:15 PM CDT [facility] Neutrophils % 73.0 40.0 - 75.0 % 01/27/2015 12:15 PM CDT [facility] Lymphocytes % 19.2(L) 19.3 - 53.1 % 01/27/2015 12:15 PM CDT [facility] Monocytes % 6.4 4.7 - 12.5 % 01/27/2015 12:15 PM CDT [facility] Eosinophils % 0.9 0.7 - 7.0 % 01/27/2015 12:15 PM T [facility] Basophils % 0.2 0.1 - 1.2 % 01/27/2015 12:15 PM CDT [facility] Immature Granulocytes 0.3 0 - 0.5 % 01/27/2015 12:15 PM CDT [facility] Neutrophil Absolute 7.26(H) 1.56 - 6.13 x10^9/L 01/27/2015 12:15 PM CDT [facility] Lymphocytes Absolute 1.91 1.18 - 3.74 x10^9/L 01/27/2015 12:15 PM T [facility] Monocytes Absolute 0.64 0.24 - 0.86 x10^9/L 01/27/2015 12:15 PM CDT [facility] Eosinophils Absolute 0.09 0.04 - 0.54 x10^9/L 01/27/2015 12:15 PM CDT [facility] Basophils Absolute 0.02 0.01 - 0.08 x10^9/L 01/27/2015 12:15 PM CDT [facility] Immature Granulocytes Absolute 0.03 0 - 0.03 x10^9/L 01/27/2015 12:15 PM T [facility] nRBC Auto 0 <=0 /100 WBC 01/27/2015 12:15 PM T [facility] nRBC Absolute 0.00 <=0 x10^9/L 01/27/2015 12:15 PM T [facility] Blood BLOOD SPECIMEN / Unknown Lab Venipuncture / Unknown 01/27/2015 12:08 PM CDT 01/27/2015 12:11 PM CDT Lisa Lo MD LAB - HEMATOLOGY ORD ERABLES [facility] [address] documented in this encounter Visit Diagnoses Diagnosis Suicidal ideation documented in this encounter
--- OUTSIDE RECORDS SUMMARY | 2024-05-07 03:07 | XMS_ITS | Referral Summary ---
Author Organization [facility] Address [address] [place] [address] Care Team Providers Care Clinical Project Manager Name Role Phone Unavailable Primary Care Provider Unavailabl e Source Comments [facility],non-owned Affiliates and Associated Physician Practices is amultiple site organization consisting of ambulatory clinics and hospital sitesin [place], [place], [place] and [place]. This disclosure is being madepursuant to the Care Everywhere program and may not contain all information available regarding this patient. Last updated 18.[employer] [facility] Allergies No known active allergies Medications * [...]
--- OUTSIDE RECORDS SUMMARY | 2024-05-07 03:07 | XMS_ITS | Clinical Summary ---
Author Organization [facility] [employer] Address [address] [place] [address] Care Team Providers Care Certified Industrial Hygienist Name Role Phone Unavailable Primary Care Provider Unavailabl e Source Comments [facility] [employer],non-owned Affiliates and Associated Physician Practices is amultiple site organization consisting of ambulatory clinics and hospital sitesin [place], [place], [place] and [place]. This disclosure is being madepursuant to the Care Everywhere program and may not contain all information available regarding this patient. Last updated 18.[employer] Allergies No known active allergies Medications * [...]
--- OUTSIDE RECORDS SUMMARY | 2024-05-07 03:07 | XMS_ITS | Encounter Summary ---
Author Organization [facility] Address [address] [place] [address] Care Team Providers Care Head Control Clerk Name Role Phone Unavailable Primary Care Provider Unavailabl e Reason for Visit * Reason Comments Lift Test Unique Lift Screen Encounter Details Date Type Department Care Team (Latest Contact Info) Description 03/18/2015 9:58 AM SALES AND MARKETING ASSOCIATE - 03/18/2015 11:59 PM SALES AND MARKETING ASSOCIATE Hospital Encounter [facility] [address] [place] [address] Eleonora Goins, DO [address] [place] [address] Discharge Disposition: Home or Self Care Social [...] test. Refer to scanning for report. Unique S AND MARKETING ASSOCIATE documented in this encounter Plan of Treatment Not on file documented as of this encounter Visit Diagnoses Diagnosis Examination, physical, employee Health examination of defined subpopulation documented in this encounter
--- OUTSIDE RECORDS SUMMARY | 2024-05-07 03:07 | XMS_ITS | Patient Health Summary ---
Author Organization [facility] [employer] Address [address] [facility] [place] [address] Care Team Providers Care Bicycle Designer Name Role Phone Unavailable Primary Care Provider Unavailabl e Note from [facility] [employer] [facility],non-owned Affiliates and Associated Physician Practices is amultiple site organization consisting of ambulatory clinics and hospital sitesin [place], [place], [place] and [place]. This disclosure is being madepursuant to the Care Everywhere program and may not contain all information available regarding this patient. Last updated 18.[facility] [employer] Allergies No known active allergies Medications * [...] URINE SCREEN 10 (01/27/2015 1:12 PM CDT) [facility] Amphetamines Screen Urine Negative Negative 01/27/2015 1:33 PM CDT [facility] Barbiturates Screen Urine Negative Negative 01/27/2015 1:33 PM CDT [facility] Benzodiazepines Screen Urine Negative Negative 01/27/2015 1:33 PM CDT [facility] Cannabinoids Screen Urine Negative Negative 01/27/2015 1:33 PM CDT [facility] Cocaine Screen Urine Negative Negative 01/27/2015 1:33 PM CDT [facility] Methadone Screen Urine Negative Negative 01/27/2015 1:33 PM CDT [facility] Opiate Screen Urine Negative Negative 01/27/2015 1:33 PM CDT [facility] Phencyclidine Screen Urine Negative Negative 01/27/2015 1:33 PM CDT [facility] Tricyclics Screen Urine Negative Negative 01/27/2015 1:33 PM CDT [facility] Methamphetamine Screen Urine Negative Negative 01/27/2015 1:33 PM CDT [facility] Urine URINE / Unknown 01/27/2015 1 :12 PM CDT 01/27/2015 1:17 PM CDT Narrative [facility] - 01/27/2015 1:33 PM CDT [...] URINE CHEMISTR Y ORDERABLES Performing Organization Address City/State/[facility] Co de Phone Number [facility] [address] * URINALYSIS ROUTINE W/REFLEX TO CULTURE (01/27/2015 1:12 PM CDT) Color UA Yellow 01/27/2015 1:22 PM CDT [facility] Clarity UA Clear 01/27/2015 1:22 PM CDT [facility] Glucose UA Negative Negative 01/27/2015 1:22 PM CDT [facility] Bilirubin UA Negative Negative 01/27/2015 1:22 PM CDT [facility] Ketone UA Negative Negative 01/27/2015 1:22 PM CDT [facility] Specific [place] UA <=1.005 1.005 - 1.030 01/27/2015 1:22 PM CDT [facility] pH UA 6.5 5.0 - 8.0 pH 01/27/2015 1:22 PM CDT [facility] Protein UA Negative Negative 01/27/2015 1:22 PM CDT [facility] Urobilinogen UA 0.2 0.2 - 1.0 EU/dL 01/27/2015 1:22 PM CDT [facility] Nitrite UA Negative Negative 01/27/2015 1:22 PM CDT [facility] Blood UA Negative Negative 01/27/2015 1:22 PM CDT [facility] Leukocyte UA Negative Negative 01/27/2015 1:22 PM T [facility] Urine Microscopy Urine microscopy not indicated 01/27/2015 1:22 PM T [facility] Reflex Status Culture not indicated 01/27/2015 1:22 PM CDT [facility] Urine URINE SPECIMEN OBTAINED BY CLEAN CATCH PROCEDURE / Unknown 01/27/2015 1:12 PM CDT 01/27/2015 1:17 PM CDT Lisa Lo MD LAB - URINALYSIS ORD ERABLES Performing Organization Address City/State/[facility] Co de Phone Number [facility] [address] * (ABNORMAL) CBC W AUTO DIFFERENTIAL (01/27/2015 12:08 PM CDT) [facility] WBC 10.0 4.0 - 10.0 x10^9/L 01/27/2015 12:15 PM CDT [facility] RBC 5.55 4.40 - 6.10 x10^12/L 01/27/2015 12:15 PM T [facility] Hemoglobin 18.1(H) 13.7 - 17.5 gm/dL 01/27/2015 12:15 PM T [facility] Hematocrit 50.7 40.1 - 51.0 % 01/27/2015 12:15 PM T [facility] MCV 91.4 78.0 - 100.0 fl 01/27/2015 12:15 PM T [facility] MCH 32.6 25.6 - 34.0 pg 01/27/2015 12:15 PM CDT [facility] MCHC 35.7 32.3 - 36.5 gm/dL 01/27/2015 12:15 PM T [facility] RDW 12.8 11.6 - 14.4 % 01/27/2015 12:15 PM T [facility] MPV 10.1 9.4 - 12.4 fl 01/27/2015 12:15 PM T [facility] Platelet Count 224 163 - 369 x10^9/L 01/27/2015 12:15 PM T [facility] Neutrophils % 73.0 40.0 - 75.0 % 01/27/2015 12:15 PM T [facility] Lymphocytes % 19.2(L) 19.3 - 53.1 % 01/27/2015 12:15 PM T [facility] Monocytes % 6.4 4.7 - 12.5 % 01/27/2015 12:15 PM T [facility] Eosinophils % 0.9 0.7 - 7.0 % 01/27/2015 12:15 PM CDT [facility] Basophils % 0.2 0.1 - 1.2 % 01/27/2015 12:15 PM CDT [facility] Immature Granulocytes 0.3 0 - 0.5 % 01/27/2015 12:15 PM CDT [facility] Neutrophil Absolute 7.26(H) 1.56 - 6.13 x10^9/L 01/27/2015 12:15 PM T [facility] Lymphocytes Absolute 1.91 1.18 - 3.74 x10^9/L 01/27/2015 12:15 PM CDT [facility] Monocytes Absolute 0.64 0.24 - 0.86 x10^9/L 01/27/2015 12:15 PM T [facility] Eosinophils Absolute 0.09 0.04 - 0.54 x10^9/L 01/27/2015 12:15 PM T [facility] Basophils Absolute 0.02 0.01 - 0.08 x10^9/L 01/27/2015 12:15 PM T [facility] Immature Granulocytes Absolute 0.03 0 - 0.03 x10^9/L 01/27/2015 12:15 PM T [facility] nRBC Auto 0 <=0 /100 WBC 01/27/2015 12:15 PM T [facility] nRBC Absolute 0.00 <=0 x10^9/L 01/27/2015 12:15 PM T [facility] Blood BLOOD SPECIMEN / Unknown Lab Venipuncture / Unknown 01/27/2015 12:08 PM CDT 01/27/2015 12:11 PM CDT Lisa Lo MD LAB - HEMATOLOGY ORD ERABLES Performing Organization Address City/State/[facility] Co de Phone Number [facility] [address] * COMPREHENSIVE METABOLIC PANEL (01/27/2015 12:08 PM CDT) [facility] Glucose 94 70 - 125 mg/dL 01/27/2015 12:39 PM CDT [facility] Sodium 137 136 - 145 mmol/L 01/27/2015 12:39 PM CDT [facility] Potassium 4.5 3.4 - 4.5 mmol/L 01/27/2015 12:39 PM T [facility] Chloride 105 98 - 107 mmol/L 01/27/2015 12:39 PM [facility] CO2 23 22 - 29 mmol/L 01/27/2015 12:39 PM [facility] Calcium 9.7 8.4 - 10.2 mg/dL 01/27/2015 12:39 PM [facility] Anion Gap 14 10 - 20 mmol/L 01/27/2015 12:39 PM [facility] BUN 11.6 8.4 - 25.7 mg/dL 01/27/2015 12:39 PM [facility] Creatinine 1.08 0.72 - 1.25 mg/dL 01/27/2015 12:39 PM [facility] eGFR by MDRD >60 >60 mL/min/1.7 3m2 01/27/2015 12:39 PM [facility] eGFR by MDRD >60 >60 mL/min/1.7 3m2 01/27/2015 12:39 PM [facility] Alkaline Phosphatase 99 40 - 150 U/L 01/27/2015 12:39 PM [facility] ALT 18 5 - 55 U/L 01/27/2015 12:39 PM [facility] AST 23 5 - 34 U/L 01/27/2015 12:39 PM [facility] Protein Total 7.5 6.4 - 8.3 gm/dL 01/27/2015 12:39 PM [facility] Albumin 4.0 3.5 - 5.0 gm/dL 01/27/2015 12:39 PM [facility] Globulin Total 3.5 2.6 - 4.0 gm/dL 01/27/2015 12:39 PM [facility] Albumin/Globulin Ratio 1.1 0.9 - 1.6 01/27/2015 12:39 PM [facility] Bilirubin Total 0.5 0.2 - 1.2 mg/dL 01/27/2015 12:39 PM [facility] Blood BLOOD SPECIMEN / Unknown Lab Venipuncture / Unknown 01/27/2015 12:08 PM CDT 01/27/2015 12:11 PM T Lisa Lo MD LAB - CHEMISTRY LATOYA Ramírez Organization Address City/State/[facility] Co de Phone Number [facility] [address] * ALCOHOL ETHYL BLOOD (01/27/2015 12:08 PM CDT) Ethanol <10.0 <10 mg/dL 01/27/2015 12:39 PM CDT [facility] Blood BLOOD SPECIMEN / Unknown Lab Venipuncture / Unknown 01/27/2015 12:08 PM CDT 01/27/2015 12:11 PM CDT Narrative [facility] - 01/27/2015 12:39 PM CDT For Medical Use Only Lisa Lo MD LAB - CHEMISTRY LATOYA PONCE Performing Organization Address City/[facility]/ZIP Co de Phone Number [facility] [address] * TSH (01/27/2015 12:08 PM CDT) TSH 0.661 0.35 - 4.94 uIU/mL 01/27/2015 12:56 PM CDT [facility] Blood BLOOD SPECIMEN / Unknown Lab Venipuncture / Unknown 01/27/2015 12:08 PM CDT 01/27/2015 12:11 PM CDT Lisa Lo MD LAB - CHEMISTRY LATOYA PONCE Performing Organization Address City/[facility]/ZIP Co de Phone Number [facility] [address] [place] [address] * (ABNORMAL) SALICYLATE LEVEL BLOOD (01/27/2015 12:08 PM CDT) Salicylate <5.0(L) 15.0 - 30.0 mg/dL 01/27/2015 12:41 PM CDT [facility] Blood BLOOD SPECIMEN / Unknown Lab Venipuncture / Unknown 01/27/2015 12:08 PM CDT 01/27/2015 12:11 PM CDT Lisa Lo MD LAB - CHEMISTRY LATOYA PONCE Performing Organization Address City/[facility]/ZIP Co de Phone Number [facility] [address] [place] [address] * (ABNORMAL) ACETAMINOPHEN LEVEL (01/27/2015 12:08 PM CDT) Acetaminophen <0.6(L) 10.0 - 30.0 ug/mL 01/27/2015 12:41 PM CDT [facility] Blood BLOOD SPECIMEN / Unknown Lab Venipuncture / Unknown 01/27/2015 12:08 PM CDT 01/27/2015 12:11 PM CDT Lisa Lo MD LAB - CHEMISTRY LATOYA PONCE Performing Organization Address City/State/[facility] Co de Phone Number [facility] [address] [place], [place] [id number] [place] [address]
--- OUTSIDE RECORDS SUMMARY | 2024-05-07 03:08 | XMS_ITS | Encounter Summary ---
Author Organization [facility] Address [address] [place] [address]. [place] [address] [place] [address] Care Team Providers Care Building Code Inspector Name Role Phone Unavailable Primary Care Provider Unavailabl e Encounter Details Date Type Department Care Team (Late st Contact Info) Description 12/25/1992 Abstract [facility] [address] [place], [place] [id number] Pedro Pablo Leahy MD [address] [place] [address] Social History Tobacco Use Types Packs/Day Years Used Date Smoking Tobacco: Never Assessed Sex and Gender Information Value Date Recorded Sex Assigned at Not on file Legal Sex Male 9:25 PM CAREER CENTER ADVISOR Gender Identity Not on file Sexual Orientation Not on file documented as of this encounter Plan of Treatment Not on file documented as of this encounter Visit Diagnoses Not on filedocumented in this encounter
--- OUTSIDE RECORDS SUMMARY | 2024-05-07 03:08 | XMS_ITS | Encounter Summary ---
Author Organization [facility] Address [address] [place] [address]. [place], [place] [address] [place] [address] Care Team Providers Care Superintendent Drilling And Production Name Role Phone Unavailable Primary Care Provider Unavailabl e Encounter Details Date Type Department Care Team (Late st Contact Info) Description 01/11/2016 Emergency [facility] Emergency [address] [place] [address] Stephan Pérez MD [address] [place] [address] Social History Tobacco Use Types Packs/Day Years Used Date Smoking Tobacco: Never Assessed Sex and Gender Information Value Date Recorded Sex Assigned at Not on file Legal Sex Male 9:25 PM GLASS SMOOTHER Gender Identity Not on file Sexual Orientation Not on file documented as of this encounter Plan of Treatment Not on file documented as of this encounter Visit Diagnoses Diagnosis Closed fracture of right scapula Closed fracture of unspecified part of scapula documented in this encounter
--- OUTSIDE RECORDS SUMMARY | 2024-05-07 03:08 | XMS_ITS | Encounter Summary ---
Author Organization [facility] Address [address] [place] [address]. 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 Gender Identity Not on file Sexual Orientation Not on file documented as of this encounter Plan of Treatment Not on file documented as of this encounter Procedures Procedure Name Priority Date/Time Associated Diagnosis Comments CBC W/DIFF AUTOMATED Routine 01/11/2016 8:13 PM CDT documented in this encounter Results * (ABNORMAL) CBC W/DIFF AUTOMATED (01/11/2016 8:13 PM CDT) WBC 13.9(H) 4.0 - 10.8 x10'3/uL 01/11/2016 8:25 PM CDT [facility] RBC 5.68 4.50 - 6.10 x10'6/uL 01/11/2016 8:25 PM CDT [facility] HGB 17.9 13.0 - 18.0 G/DL 01/11/2016 8:31 PM CDT [facility] Comment: RESULTS, SPECIMEN DATE, TIME WERE READ BACK BY DESIREE FERNÁNDEZ IN [place]EL @[id number]. ??JMA HCT 49.3 37.0 - 52.0 % 01/11/2016 8:25 PM CDT [facility] MCV 86.8 78.0 - 100.0 FL 01/11/2016 8:25 PM CDT [facility] MCH 31.5(H) 27.0 - 31.0 PG 01/11/2016 8:31 PM CDT [facility] MCHC 36.3(H) 33.0 - 36.0 G/DL 01/11/2016 8:31 PM CDT [facility] RDW 12.7 11.5 - 14.5 % 01/11/2016 8:25 PM CDT [facility] PLT 244 150 - 350 x10'3/uL 01/11/2016 8:25 PM CDT [facility] MPV 10.0 7.4 - 10.4 FL 01/11/2016 8:25 PM CDT [facility] ABS. NEUTROPHILS TOTAL 10.12(H) 1.60 - 8.30 x10'3/uL 01/11/2016 8:25 PM CDT [facility] ABS. LYMPHOCYTES 2.84 0.80 - 4.70 x10'3/uL 01/11/2016 8:25 PM CDT [facility] ABS. MONOCYTES 0.80 0.00 - 1.50 x10'3/uL 01/11/2016 8:25 PM CDT [facility] ABS. EOSINOPHILS 0.04 0.00 - 0.40 x10'3/uL 01/11/2016 8:25 PM CDT [facility] ABS. BASOPHILS 0.04 0.00 - 0.20 x10'3/uL 01/11/2016 8:25 PM CDT [facility] ABS. IMMATURE GRANULOCYTES 0.04(H) 0.00 - 0.03 x10'3/uL 01/11/2016 8:25 PM CDT [facility] ABS. NUCLEATED RBC'S 0.00 0.0 x10'3/uL 01/11/2016 8:25 PM CDT [facility] PLASMA SPECIMEN / Unknown 01/11/2016 8:13 PM CDT 01/11/2016 8:22 PM CDT us Generic Conversion Md [facility] Final R esult [facility] [address] [place] [address], [id number] documented in this encounter Visit Diagnoses Not on filedocumented in this encounter
--- OUTSIDE RECORDS SUMMARY | 2024-05-07 03:08 | XMS_ITS | Clinical Summary ---
Author Organization [facility] Address [address] [place] [address]. 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 Gender Identity Not on file Sexual Orientation Not on file Plan of Treatment Health Maintenance Due Date Last Done Comments Annual Physical 11/14/1986 Hepatitis C 11/14/2001 DTaP, Tdap and Td Vaccines ( 1 - Tdap) 11/14/2002 Hepatitis B Vaccines (1 of 3 - 19+ 3-dose series) 11/14/2002 COVID-19 Vaccine (2023-2 5 season) 2024 Influenza Adult (#1) 2024 HPV Vaccines Aged Out No longer eligi ble based on patient's age to complete this topic Meningococcal Vaccine Aged Out No rudy beth eligible based on patient's age to complete this topic Pneumococcal Vaccine: Pediat rics (0 to 5 Years) and At-Risk Patients (6 to 64 Years) Aged Out No longer eligible b ased on patient's age to complete this topic RSV Immunizations Under 20 Months Aged Out No longer eligible based on patient's age to complete this topic
--- OUTSIDE RECORDS SUMMARY | 2024-05-07 03:08 | XMS_ITS | Encounter Summary ---
Author Organization [facility] Address [address] [place] [address]. [place], [place] [address] [place], [place] [id number] Care Team Providers Care Adjustment Supervisor Name Role Phone Unavailable Primary Care Provider Unavailabl e Encounter Details Date Type Department Care Team (Late st Contact Info) Description 02/22/[address] 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
--- OUTSIDE RECORDS SUMMARY | 2024-05-07 03:08 | XMS_ITS | Encounter Summary ---
Author Organization [facility] Address [address] [place] [address]. [place], [place] [phone] [place] [address] Care Team Providers Care Desk Reporter Name Role Phone Unavailable Primary Care Provider Unavailabl e Encounter Details Date Type Department Care Team (Late st Contact Info) Description 08/24/1994 Abstract [facility] Services [address] [place] [address] Nilesh Garcia MD [address] [place] [address] Social History Tobacco Use Types Packs/Day Years Used Date Smoking Tobacco: Never Assessed Sex and Gender Information Value Date Recorded Sex Assigned at Not on file 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
--- OUTSIDE RECORDS SUMMARY | 2024-05-07 03:08 | XMS_ITS | Encounter Summary ---
Author Organization [facility] Address [facility] [facility] 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 Gender Identity Not on file Sexual Orientation Not on file documented as of this encounter Plan of Treatment Not on file documented as of this encounter Procedures Procedure Name Priority Date/Time Associated Diagnosis Comments BASIC METABOLIC PANEL Routine 01/11/2016 8:13 PM CDT documented in this encounter Results * BASIC METABOLIC PANEL (01/11/2016 8:13 PM CDT) SODIUM S/P/B 139 135 - 147 MMOL/L 01/11/2016 8:42 PM CDT [facility] POTASSIUM S/P/B 4.3 3.5 - 5.0 MMOL/L 01/11/2016 8:42 PM CDT [facility] CHLORIDE S/P/B 102 98 - 107 MMOL/L 01/11/2016 8:42 PM CDT [facility] CO2 27.6 22 - 29 MMOL/L 01/11/2016 8:42 PM CDT [facility] GLUCOSE 103 70 - 109 MG/DL 01/11/2016 8:42 PM CDT [facility] BUN 15 9 - 21 MG/DL 01/11/2016 8:42 PM CDT [facility] CREATININE S/P/B 1.25 0.70 - 1.30 MG/DL 01/11/2016 8:42 PM CDT [facility] CALCIUM S/P/B 9.5 8.4 - 10.2 MG/DL 01/11/2016 8:42 PM CDT [facility] EGFR NON-AFR. AMER. 67 >60 ML/MIN/1.7 3 M2 01/11/2016 8:42 PM CDT [facility] EGFR AFR. AMER. 81 >60 ML/MIN/1.7 3 M2 01/11/2016 8:42 PM CDT [facility] ANION GAP 9.4 MMOL/L 01/11/2016 8:42 PM CDT [facility] OSMOLALITY (CALC) 279 MOSM/KG 01/11/2016 8:42 PM CDT [facility] PLASMA SPECIMEN / Unknown 01/11/2016 8:13 PM CDT 01/11/2016 8:22 PM CDT us Generic Conversion Md [facility] Final R esult [facility] [place] [address], [id number] documented in this encounter Visit Diagnoses Not on filedocumented in this encounter
--- OUTSIDE RECORDS SUMMARY | 2024-05-07 03:08 | XMS_ITS | Encounter Summary ---
Author Organization [facility] Address [address] [place] [address]. [place], [place] [phone] [place], [place] [phone] Care Team Providers Care Set Off Blocker Name Role Phone Unavailable Primary Care Provider Unavailabl e Encounter Details Date Type Department Care Team (Late st Contact Info) Description 02/22/[address] 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
--- OUTSIDE RECORDS SUMMARY | 2024-05-07 03:08 | XMS_ITS | Encounter Summary ---
Author Organization [facility] Address [facility] 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 Gender Identity Not on file Sexual Orientation Not on file documented as of this encounter Plan of Treatment Not on file documented as of this encounter Procedures Procedure Name Priority Date/Time Associated Diagnosis Comments TYPE & SCREEN STAT 01/11/2016 8:13 PM CDT documented in this encounter Results * TYPE & SCREEN (01/11/2016 8:13 PM CDT) ABO/RH O NEGATIVE 01/11/2016 9:16 PM CDT [facility] ANTIBODY SCREEN NEGATIVE 9:16 PM CDT [facility] SAMPLE EXPIRATION 01/14/2016 01/11/2016 8:26 PM CDT [facility] 01/11/2016 8:13 PM CDT 01/11/2016 8:24 PM CDT us Generic Conversion Md CAM BLOOD BANK TEST ORDERAB LES Final Result [facility] Anand [place] [address] [phone] [id number] documented in this encounter Visit Diagnoses Not on filedocumented in this encounter
--- OUTSIDE RECORDS SUMMARY | 2024-05-07 03:08 | XMS_ITS | Encounter Summary ---
Author Organization [facility] Address [address] [place] [address]. 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 Gender Identity Not on file Sexual Orientation Not on file documented as of this encounter Plan of Treatment Not on file documented as of this encounter Procedures Procedure Name Priority Date/Time Associated Diagnosis Comments ETHANOL Routine 01/11/2016 8:13 PM CDT documented in this encounter Results * ETHANOL (01/11/2016 8:13 PM CDT) ALCOHOL S/P/B ZERO 0 G/DL 01/11/2016 8:45 PM CDT [facility] SERUM OR PLASMA SPECIMEN / Unknown 01/11/2016 8:13 PM CDT 01/11/2016 8:22 PM CDT us Generic Conversion Md CAM LABORATORY Final R esult [facility] [place] [place] [address], [place] [phone] documented in this encounter Visit Diagnoses Not on filedocumented in this encounter
--- OUTSIDE RECORDS SUMMARY | 2024-05-07 03:08 | XMS_ITS | Encounter Summary ---
Author Organization [facility] Address [address] [place] [address]. 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
--- OUTSIDE RECORDS SUMMARY | 2024-05-07 03:08 | XMS_ITS | Encounter Summary ---
Author Organization [facility] Address [address] [place] [address]. 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 Gender Identity Not on file Sexual Orientation Not on file documented as of this encounter Plan of Treatment Not on file documented as of this encounter Procedures Procedure Name Priority Date/Time Associated Diagnosis Comments POCT GLUCOSE - SHIPLEY DOCKED DEVICE Routine 01/11/2016 9:41 PM CDT documented in this encounter Results * POCT glucose (01/11/2016 9:41 PM CDT) GLUCOSE POC 71 70 - 109 01/11/2016 9:44 PM CDT [facility] ORDERS INTERFACE WHOLE BLOOD SPECIMEN / Unknown 01/11/2016 9:41 PM CDT 01/11/2016 9:44 PM CDT us Generic Conversion Md CAM POCT ORDERABLES - DEVIC E Final Result [facility] ORDERS INTERFACE US documented in this encounter Visit Diagnoses Not on filedocumented in this encounter
--- OUTSIDE RECORDS SUMMARY | 2024-05-07 03:08 | XMS_ITS | Encounter Summary ---
Author Organization [facility] Address [address] [place] [address]. [place], [place] [address] [place] [address] Care Team Providers Care Army Helicopter Pilot Name Role Phone Unavailable Primary Care Provider Unavailabl e Encounter Details Date Type Department Care Team (Late st Contact Info) Description 08/25/1994 Abstract [facility] [address] [place] [address] Nilesh Garcia MD [address] [place] [address] Social History Tobacco Use Types Packs/Day Years Used Date Smoking Tobacco: Never Assessed Sex and Gender Information Value Date Recorded Sex Assigned at Not on file 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
--- OUTSIDE RECORDS SUMMARY | 2024-05-07 03:08 | XMS_ITS | Encounter Summary ---
Author Organization [facility] Address [facility]ly [facility] 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
== END 2024-04-30 03:24 | disposition home or self-care (01) ==
PROVIDERS: Emergency Provider Emergency Medicine
DX: J01.00 Acute maxillary sinusitis, unspecified (principal)
CPT/HCPCS: 99283; A9270

== ENCOUNTER 2025-01-12 23:02 | Emergency (ER) | payer OTHER, SELFPAY ==
--- OUTSIDE RECORDS SUMMARY | 2025-01-12 23:04 | XMS_ITS | Encounter Summary ---
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
--- OUTSIDE RECORDS SUMMARY | 2025-01-12 23:04 | XMS_ITS | Clinical Summary ---
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 Gender Identity Not on file Sexual Orientation Not on file Plan of Treatment Health Maintenance Due Date Last Done Comments Annual Physical 11/14/1986 Hepatitis C 11/14/2001 DTaP, Tdap and Td Vaccines ( 1 - Tdap) 11/14/2002 Hepatitis B Vaccines (1 of 3 - 19+ 3-dose series) 11/14/2002 HPV Vaccines (1 - 3-dose SCD M series) 11/14/2010 COVID-19 Vaccine ( - 2023-2 5 season) 2025 Meningococcal B Vaccine Aged Out No l onger eligible based on patient's age to complete this topic Meningococcal Vaccine Aged Out No rudy beth eligible based on patient's age to complete this topic Pneumococcal Vaccine: Pediat rics (0 to 5 Years) and At-Risk Patients (6 to 49 Years) Aged Out No longer eligible b ased on patient's age to complete this topic RSV Immunizations Under 20 Months Aged Out No longer eligible based on patient's age to complete this topic
[2025-01-12 23:05] VITALS: BP 158/102; PULSE 63; RESP 18; TEMP 36.3; O2SAT 99
--- NOTE | 2025-01-12 23:12 | ED.DENTAL ---
HPI - Dental/Oral General Chief complaint: Dental/Oral Stated complaint: DENTAL PAIN Time Seen by Provider: 01/12/25 23:11 Source: patient Mode of arrival: ambulatory Limitations: no limitations History of Present Illness HPI Narrative: Patient is a 39-year-old male with left lower jaw pain and swelling with dental pain. Pain has been going on for 1 day. MD Complaint: tooth pain and tooth injury Location: Tooth # ( Seventeen) Onset (ago): day(s) ( 1) Duration: constant Severity: moderate Severity scale (1-10): 8 Relieving factors: nothing Exacerbating factors: chewing, cold, heat and drinking fluids Context: history of dental caries, trauma (mechanism) and poor dental care Associated symptoms: other ( left jaw and cheek pain) Treatment prior to arrival: oral analgesic Related Data Allergies Allergy/AdvReac Type Severity Reaction Status Date / Time No Known Allergies Allergy Verified 01/12/25 23:06 Review of Systems Review of Systems: All systems reviewed & are unremarkable except as noted in HPI and below Constitutional: Constitutional: Reports no additional constitutional complaints Eyes: Eyes: Reports no additional eye complaints ENT: Reports system reviewed and no additional complaints, except as documented Cardiovascular: Cardiovascular: Reports no additional cardiovascular complaints Respiratory: Respiratory: Reports no additional respiratory complaints Gastrointestinal: Gastrointestinal: Reports no additional gastrointestinal complaints Genitourinary: Genitourinary: Reports no additional male genitourinary complaints Musculoskeletal: Musculoskeletal: Reports no additional musculoskeletal complaints Integumentary/Breasts: Skin/Breast: Reports system reviewed and no additional complaints, except as docu Neurologic: Reports system reviewed and no additional complaints, except as documented Psychiatric: Psychiatric: Reports no additional psychiatric complaints Endocrine: Endocrine: Reports no additional endocrine complaints Hematologic/Lymphatic: Hematologic/Lymphatic: Reports no additional hematologic/lymphatic complaints Allergic/Immunologic: Allergic/Immunologic: Reports no additional allergic/immunologic complaints PMFSH Past Medical History Medical History Patient denies medical problems Exam Const: General: healthy appearing Nutritional Appearance: well nourished Orientation/consciousness: patient oriented x3 HENMT: Head: normal to inspection Ears: external ears normal Face/Nose/Sinus: Normal external nose present Other: left lower jaw tooth 17 has fracture and decay with localized redness and left cheek swelling Eyes: Conjunctivae: conjunctivae normal Pupils: Equal, round and reactive pupils present EOM: EOMs intact bilaterally Neck: Neck: normal visual inspection Chest: Chest palpation & inspection: normal inspection of the chest Resp: Effort & Inspection: normal respiratory effort and not labored Auscultation: clear to auscultation bilaterally and no crackles Cardio: Rate: regular rate Rhythm: regular rhythm Heart sounds: no murmurs GI: Inspection: non-distended GI Palp: Yes Soft to palpation and No Tenderness to palpation present (GI) Auscultation: normal bowel sounds : General: Yes bladder normal to palpation Back/Spine/Pelvis: Back: no CVA tenderness Skin: General skin exam: normal color Rashes: no rashes Wounds: no wounds Neuro: General: patient oriented x3, moves all extremities and no meningeal signs Extrem: General: normal to inspection Psych: Mental Status: mental status grossly normal Affect: normal affect Course Vital Signs Vital signs: Vital Signs Temperature 36.3 C L 01/12/25 23:05 Pulse Rate 63 01/12/25 23:05 Respiratory Rate 18 01/12/25 23:05 Blood Pressure 158/102 H 01/12/25 23:05 Pulse Oximetry 99 01/12/25 23:05 Oxygen Delivery Room Air 01/12/25 23:05 Temperature 36.3 C L 01/12/25 23:05 Pulse Rate 63 01/12/25 23:05 Respiratory Rate 18 01/12/25 23:05 Blood Pressure 158/102 H 01/12/25 23:05 Pulse Oximetry 99 01/12/25 23:05 Oxygen Delivery Room Air 01/12/25 23:05 MDM - Dental/Oral MDM Narrative Medical decision making narrative: patient is a 39-year-old male with left jaw pain and dental decay. Augmentin. Ultram. Toradol. Discharge Plan Discharge Clinical Impression: Mandible pain Patient Disposition: Home Condition: Stable Instructions: Antibiotic Form, Toothache (ED) Additional Instructions: Please see a dentist as soon as possible. Patient Language: Kiswahili Prescriptions: New amoxicillin-pot clavulanate 875-125 mg tablet 1 tablet PO BID 10 Days Qty: 20 0RF tramadol 50 mg tablet 50 mg PO Q8H PRN (Reason: pain) Qty: 20 0RF Follow-up/Referrals: [facility] [Primary Care Provider, Medical] Time of Disposition: 23:34
[2025-01-12] MEDS: traMADol HCL (*CRX) 50 MG TABLET 100 MG PO (23:22)
[2025-01-12] MEDS: KETOROLAC (*BKC) 60 MG/2 ML VIAL IM (23:23)
== END 2025-01-12 23:53 | disposition home or self-care (01) ==
PROVIDERS: Emergency Provider Emergency Medicine
DX: R68.84 Jaw pain (principal)
CPT/HCPCS: 96372; 99283; A9270; J1885

== ENCOUNTER 2025-04-03 13:04 | Emergency (ER) | payer OTHER, SELFPAY ==
[2025-04-03 13:04] VITALS: BP 131/102; PULSE 75; RESP 18; TEMP 36.8; O2SAT 97
--- NOTE | 2025-04-03 13:11 | ED.EYEPROB ---
HPI - Eye Problem General Chief complaint: Eye Problems Stated complaint: left eye injury Time Seen by Provider: 04/03/25 13:11 Source: patient Mode of arrival: ambulatory Limitations: no limitations History of Present Illness HPI Narrative: Patient is a 39-year-old male with a left eye irritation after grinding metal 3 days ago. He felt something go into his eye at that time. He has been having pain and irritation of the left eye since the event. chief complaint: eye pain, eye redness and eye injury Onset (ago): day(s) (Three) Onset description: sudden Duration: constant Location: left eye Eye Symptoms: burning, redness, pain and foreign body sensation Place: work Mechanism: occurred while hammering/grinding Severity: moderate Severity scale (1-10): 4 If Pain, Quality: sharp and burning Context: other (Patient was grinding metal 3 days ago and got a piece of metal into the left eye now with complaints of irritation and pain) Associated symptoms: none Treatments Prior to Arrival: none Related Data Allergies Allergy/AdvReac Type Severity Reaction Status Date / Time No Known Allergies Allergy Verified 04/03/25 13:12 Review of Systems Review of Systems: All systems reviewed & are unremarkable except as noted in HPI and below Constitutional: Constitutional: Reports no additional constitutional complaints Eyes: Eyes: Reports no additional eye complaints ENT: Reports system reviewed and no additional complaints, except as documented Cardiovascular: Cardiovascular: Reports no additional cardiovascular complaints Respiratory: Respiratory: Reports no additional respiratory complaints Gastrointestinal: Gastrointestinal: Reports no additional gastrointestinal complaints Genitourinary: Genitourinary: Reports no additional male genitourinary complaints Musculoskeletal: Musculoskeletal: Reports no additional musculoskeletal complaints Integumentary/Breasts: Skin/Breast: Reports system reviewed and no additional complaints, except as docu Neurologic: Reports system reviewed and no additional complaints, except as documented Psychiatric: Psychiatric: Reports no additional psychiatric complaints Endocrine: Endocrine: Reports no additional endocrine complaints Hematologic/Lymphatic: Hematologic/Lymphatic: Reports no additional hematologic/lymphatic complaints Allergic/Immunologic: Allergic/Immunologic: Reports no additional allergic/immunologic complaints PMFSH Past Medical History Medical History Patient denies medical problems Exam Const: General: healthy appearing Nutritional Appearance: well nourished Orientation/consciousness: patient oriented x3 HENMT: Head: normal to inspection Ears: external ears normal Face/Nose/Sinus: Normal external nose present Eyes: Conjunctivae: abnormal conjunctivae and conjunctival abnormality (Red and injected on the left) Pupils: Equal, round and reactive pupils present EOM: EOMs intact bilaterally Direct Ophthalmoscopy: No no photophobia and photophobia Other: Upon magnification of the left eye there are 2 small pieces of metal in the midline cornea at 6:00 a.m. position 1 is superior and 1 is inferior at that position Neck: Neck: normal visual inspection Chest: Chest palpation & inspection: normal inspection of the chest Resp: Effort & Inspection: normal respiratory effort and not labored Auscultation: clear to auscultation bilaterally and no crackles Cardio: Rate: regular rate Rhythm: regular rhythm Heart sounds: no murmurs GI: Inspection: non-distended GI Palp: Yes Soft to palpation and No Tenderness to palpation present (GI) Auscultation: normal bowel sounds : General: Yes bladder normal to palpation Skin: General skin exam: normal color Rashes: no rashes Wounds: no wounds Neuro: General: patient oriented x3, moves all extremities and no meningeal signs Extrem: General: normal to inspection, no clubbing, cyanosis or edema and no pedal edema Psych: Mental Status: mental status grossly normal Affect: normal affect and Anxious affect present Attitude: cooperative Course Vital Signs Vital signs: Vital Signs Temperature 36.8 C 04/03/25 13:04 Pulse Rate 75 04/03/25 13:04 Respiratory Rate 18 04/03/25 13:04 Blood Pressure 131/102 H 04/03/25 13:04 Pulse Oximetry 97 04/03/25 13:04 Oxygen Delivery Room Air 04/03/25 13:04 Temperature 36.8 C 04/03/25 13:04 Pulse Rate 75 04/03/25 13:04 Respiratory Rate 18 04/03/25 13:04 Blood Pressure 131/102 H 04/03/25 13:04 Pulse Oximetry 97 04/03/25 13:04 Oxygen Delivery Room Air 04/03/25 13:04 Procedures FB Removal Eye Foreign Body #1: Foreign Body Removal Date: 04/03/25 Foreign Body Removal Time: 14:52 Time Out performed: Yes Location: eye (L) Topical anesthetic used: tetracaine Foreign body: metal Evidence of corneal penetration: Yes Technique: cotton tip swab (Removal of superior piece) and needle (Removal of inferior piece) Procedure performed under: direct visualization with magnification Post-procedure medication: ophthalmic antibiotic and topical anesthetic Patient tolerated procedure: well and no complications Foreign Body Removal Narrative: Removal of both pieces of metal was completed in total MDM - Eye Problem MDM Narrative Medical decision making narrative: Patient is a 39-year-old male with a left eye foreign body of metal 3 days ago into the eye. I will remove the metal from the eye at this time. Initially with cotton swab and further with a needle if needed. Tetracaine used for anesthesia. Antibiotic drops will be needed for corneal abrasion. Discharge Plan Discharge Clinical Impression: Foreign body in eyeball, left, Abrasion, corneal Patient Disposition: Home Condition: Stable Instructions: Antibiotic Form, Corneal Abrasion (ED), Eye Foreign Body (ED) Additional Instructions: Please follow-up with the primary doctor in the next week. If you have continued problems with the eye see an pattern ruler or an [employer] in the next week. Patient Language: Bhutanese Prescriptions: New neomycin-polymyxin B-dexameth [Maxitrol] 3.5mg/mL-10,000 unit/mL-0.1 % drops,suspension 2 drp LEFT EYE TID 7 Days Qty: 5 0RF No Action amoxicillin-pot clavulanate 875-125 mg tablet 1 tablet PO BID 10 Days Qty: 20 0RF tramadol 50 mg tablet 50 mg PO Q8H PRN (Reason: pain) Qty: 20 0RF Follow-up/Referrals: [facility] [Primary Care Provider, Medical] Time of Disposition: 15:41
[2025-04-03] MEDS: TETRACAINE HCL 0.5% OPHTH SOLN 4 ML BTL 1 DROP LEFT EYE (13:55)
[2025-04-03] MEDS: FLUORESCEIN SOD 1 MG/STRIP EACH EYE (13:55)
--- OUTSIDE RECORDS SUMMARY | 2025-04-03 14:43 | XMS_ITS | Encounter Summary ---
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
--- OUTSIDE RECORDS SUMMARY | 2025-04-03 14:43 | XMS_ITS | Clinical Summary ---
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
--- OUTSIDE RECORDS SUMMARY | 2025-04-03 15:32 | XMS_ITS | Clinical Summary ---
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
--- OUTSIDE RECORDS SUMMARY | 2025-04-03 15:32 | XMS_ITS | Encounter Summary ---
Author Organization 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
[2025-04-03 15:45] VITALS: BP 143/94; PULSE 64; RESP 16; O2SAT 97
== END 2025-04-03 15:46 | disposition home or self-care (01) ==
PROVIDERS: Emergency Provider Emergency Medicine
DX: S05.02XA Injury of conjunctiva and corneal abrasion without foreign body, left eye, initial encounter (principal); W44.E0XA Non-magnetic metal object unspecified, entering into or through a natural orifice, initial encounter
CPT/HCPCS: 65220; 99283